=== PATIENT | male | born 1980 | race Caucasian/White ===

== ENCOUNTER 2017-01-28 12:00 | Outpatient (RCR) | payer OTHER, SELFPAY ==
--- NOTE | 2016-11-01 17:59 | HP.PTEVAL_ITS ---
Patient's Visit Information ELIE AGARWAL is a 35 year old M referred to Physical Therapy by Stanislav Stubbs with a diagnosis of R rot cuff strain. Date of Evaluation: 11/01/16 Physical Therapist: Giancarlo Hyatt PT, - Visit Plan Frequency: 2-3x /Week Duration: 4 Weeks Plan: R shoulder strengthening (rot cuff), scap stab ex's, UBE, and HEP. Us and CP for pain - Subjective Subjective: reports R shoulder has been sore for about three weeks now. Pain had an insidious onset with pain. Pt reports no PMHx of pain like this in the R shoulder. Pt is R hand dominant. Sleep diff secondary to pain on occasion. Pt reports his worst pain is on the anterior aspect of the R shoulder. Pt works for a local [employer] which can result in heavy lifting at times. Pt reports he has not had any Dx tests at this time. Shoulder feels better in the morning, and always worse as the day goes on. 7/10 at rest, 9/10 at worst - Pain R shoulder Pain Intensity (Out of 10): 7 Pain Intensity Range: 9 - Objective Neuro: B UE sensation WNL to light touch. B bicepital reflex= 1/3. Palpation: Pain along the LHB tendon. No obvious deformity in R shoulder. ROM: L shoudler flex= 170, abd= 170, ER= 70, IR WNL; R shoulder flex= 140, abd= 140, ER= 70, WNL. MMT: R shoulder ER= 4-/5, all other B UE 5/5 throughout. Special tests: Pos empty can test - Goals Goal 1:: Decrease R shoulder pain x 50% to aid with sleep Goal Time Frame: 2-4 Weeks Goal 2:: Increase R shoulder flex and abd ROM x 20 degrees to aid with overhead lifting Goal Time Frame: 2-4 Weeks Goal 3:: Increase R shoulder strength x one grade to aid with RTW without limitation Goal Time Frame: 2-4 Weeks Goal 4:: I with HEP Goal Time Frame: 2-4 Weeks - Rehabilitation Potential Physical Therapy Diagnosis: R shoulder pain, weakness, and decreased ROM secondary to R shoulder impingement syndrome Rehabilitation Potential: Good - Anticipated Interventions Patient/Client Instruction: Educate patient on: Condition, Plan of Care For the Purpose of:: To improve self management Therapeutic Exercise to Include: Strength training, Endurance training, Passive ROM, Active ROM, Scapular Strength/Stabilization For the Purpose of:: To decrease pain, To increase ROM, To improve muscle performance and motor function Cryotherapy (ice pack, ice massage): Yes Ultrasound (thermal/non thermal): Yes For the Purpose of:: To decrease pain Thank you for the opportunity to evaluate your patient. For Medicare and Medicare HMO plans, please review the plan of care and approve it. It will need to be FAXED BACK to us at [phone] for Medicare purposes. Please let me know if there are questions or concerns regarding this plan of care. Physician Signature: Date:
--- NOTE | 2017-01-28 12:21 | HP.PTREVAL_ITS ---
Stanislav Stubbs, It has been my pleasure to treat ELIE AGARWAL over the last 20 visits for R rot cuff strain. Please see the progress note below for an update on the physical therapy plan of care! Subjective: Pt reports he hasnt improved to any sig level at this time Objective/Function: R shoulder ROM: flex= 150, abd= 140, ER= 70, IR WNL. MMT: R shoulder 5/5 throughout with exception to ER 4/5. Pt is I with HEP Plan Plan: Hold chart open until after MRI and DrAntonietta visit Goals Goal 1:: Decrease R shoulder pain x 50% to aid with sleep Goal Time Frame: 2-4 Weeks Goal Progress: Goal Met Goal 2:: Increase R shoulder flex and abd ROM x 20 degrees to aid with overhead lifting Goal Time Frame: 2-4 Weeks Goal Progress: Progressing Goal 3:: Increase R shoulder strength x one grade to aid with RTW without limitation Goal Time Frame: 2-4 Weeks Goal Progress: Goal Met Goal 4:: I with HEP Goal Time Frame: 2-4 Weeks Goal Progress: Goal Met Anticipated Interventions Patient/Client Instruction: Educate patient on: Condition, Plan of Care For the Purpose of:: To improve self management Therapeutic Exercise to Include: Strength training, Endurance training, Passive ROM, Active ROM, Scapular Strength/Stabilization For the Purpose of:: To decrease pain, To increase ROM, To improve muscle performance and motor function Cryotherapy (ice pack, ice massage): Yes Ultrasound (thermal/non thermal): Yes For the Purpose of:: To decrease pain Please do not hesitate to contact me at [phone] by phone or Fax: if you have questions or concerns regarding this new plan of care! Sincerely, Giancarlo Hyatt, PT,
--- NOTE | 2017-04-21 17:14 | HP.PT.NRP ---
HP - Discharge Summary (1) - Patient Information ELIE AGARWAL was seen in my office for initial evaluation on 11/01/16. The following Plan of Care was established for this patient: Initial Frequency: 2-3x /Week Initial Duration: 4 Weeks - Anticipated Interventions Patient/Client Instruction: Educate patient on: Condition, Plan of Care For the Purpose of:: To improve self management Therapeutic Exercise to Include: Strength training, Endurance training, Passive ROM, Active ROM, Scapular Strength/Stabilization For the Purpose of:: To decrease pain, To increase ROM, To improve muscle performance and motor function Cryotherapy (ice pack, ice massage): Yes Ultrasound (thermal/non thermal): Yes For the Purpose of:: To decrease pain This patient was last seen in our office . Pertinent comments regarding their Physical therapy will appear below: Pt was last treated on the date of 01/28/17. We discussed holding further PT until after F/U with Dr Olivas. Pt has not returned through todays date, and is therefore discontinued at this time. At this point I will be discontinuing this patient from physical therapy. I would be happy to see this patient again in the future if found appropriate by the physician. Thank you! Giancarlo Hyatt, PT,
== END 2017-01-28 19:00 | disposition home or self-care (01) ==
LOC: PT 12:00
PROVIDERS: Family Provider Family Medicine; PCP Family Medicine; Visit Provider Family Medicine
DX: S46.011D Strain of muscle(s) and tendon(s) of the rotator cuff of right shoulder, subsequent encounter (principal); M75.21 Bicipital tendinitis, right shoulder; X58.XXXD Exposure to other specified factors, subsequent encounter
CPT/HCPCS: 97110; 97161; 97530

== ENCOUNTER → 2017-05-09 22:05 | Outpatient (CLI) | payer OTHER, SELFPAY | PROVIDERS: Family Provider Family Medicine; PCP Family Medicine; Visit Provider Family Medicine | DX: Z20.818 Contact with and (suspected) exposure to other bacterial communicable diseases (principal) | CPT/HCPCS: 87798 ==

== ENCOUNTER → 2017-12-28 12:07 | Outpatient (CLI) | payer OTHER, SELFPAY ==
--- NOTE | 2017-12-28 12:12 | RAD_ITS ---
STUDY: X-RAY - RIGHT WRIST REASON FOR EXAM: Male, 37 years old. Pain for one month. TECHNIQUE: A view(s) of the wrist were obtained. COMPARISON: None. FINDINGS: Normal visualized distal radius and ulna. Normal radiocarpal articulation. Normal distal radioulnar articulation. Normal carpal bones. Normal carpal articulations. Normal carpometacarpal articulation of the thumb. Normal second through fifth carpometacarpal articulations. Normal visualized metacarpal bones. The soft tissue structures are unremarkable. RAD/Wrist min 3 Views IMPRESSION: Normal x-ray examination of the wrist. Electronically Signed: Bk Ruiz DO at 18:27 EDT Tel [phone], Service support ,
== END ==
PROVIDERS: Family Provider Family Medicine; PCP Family Medicine; Referring Provider Family Medicine; Visit Provider Family Medicine
DX: M25.531 Pain in right wrist (principal)
CPT/HCPCS: 73110

== ENCOUNTER 2018-08-30 16:41 | Emergency (ER) | payer OTHER, SELFPAY ==
[2018-08-30 16:42] VITALS: BP 156/83; PULSE 98; RESP 16; TEMP 36.7; O2SAT 99; BMI 34.7
--- NOTE | 2018-08-30 17:22 | ED.DCSUM_ITS ---
- ER Visit Summary Date of Service: 08/30/18 Chief Complaint: Back pain History of Present Illness: The patient is a 37 M with back pain for the past month. The pain is in his right upper lumbar and lower thoracic area. He said it came on like a charley horse, but that it has not eased up over the past mo nth. He has tried ibuprofen and Tylenol with no improvement. He said the pain is starting to wrap around to his right flank. He denies any abdominal pain or GI symptoms. He denies any urinary symptoms. Denies trauma. Denies any chest pain, shortness of breath, cough, or sputum. Denies fevers. Denies leg swelling or calf pain. Denies any history of heart or lung disease. Denies any history of vascular disease or PE. Physical Examination: Afebrile and vital signs are unremarkable. Patient does have some right thoracic back tenderness just inferior to his ribs and also some tenderness in his right CVA. Right flank is mildly tender. Abdomen is soft and nontender. Heart regular. Lungs clear in all keith. Extremities nontender with no edema. Skin normal in color without jaundice or pallor. Test Results: Labs and urinalysis pending. Emergency Department Course and Treatment: I suspect this is myofascial pain. The pain seems to be wrapping around and progressing, so I will check a urinalysis and some blood work. I do not believe that he has lung disease, PE. Patient agreed. We will not pursue chest imaging. Will check labs and urinalysis before pursuing any further imaging. There is nothing to suggest a fracture or spinal injury. Work-up was unremarkable. I suspect this is myofascial pain. I had a discussion with the patient. Given that his exam, symptoms, labs, urinalysis are reassuring, I believe he can try medical management. I explained that I do not know what is causing his symptoms, and so it is important to follow-up with his doctor. He may need further testing as an outpatient if anything new develops. He should also return to the ED if he has any problems following up or any new or worsening issues. Continue anti-inflammatories. We will add Flexeril. Follow-up with primary care. Return for any new or worsening issues. Treatment Plan: As above Disposition: Discharge Impression: 1. Thoracic back pain This note was generated with [employer].ation software. It may contain incorrect words, spelling, and punctuation that were not noted in review of the chart prior to signing ED Disposition - Plan for ED Patient: Instructions: ED Spasm Back No Trauma Prescriptions: cycloBENZAPRine HCl [Flexeril] 10 mg PO TID PRN #20 tab PRN Reason: Muscle Spasm Referrals: Dilshad Stubbs MD [Primary Care Provider] -
[2018-08-30 17:58] LABS: Absolute Neutrophil Count 4.3 X10^3/uL (2.0-7.7); Basophil# 0.04 X10^3/uL; Basophil% 0.5 % (0-1); Eosinophil# 0.33 X10^3/uL; Eosinophils% 4.3 % (0-5); Hematocrit 41.4 % (40-54); Hemoglobin 14.3 g/dl (13.0-16.5); Lymphocyte % 29.9 % (19-41); Mean Corp Hgb Conc 34.5 g/gl (32-36); Mean Corpuscular Hgb 30.6 pg (27.0-32.0); Mean Corpuscular Volume 88.5 fL (80-94); Mean Platelet Vol. 9.6 fl (6.2-12.0); Monocyte# 0.73 X10^3/uL; Monocyte% 9.5 % (0-10); Neutrophil # 4.29 X10^3/uL (2.7-7.7); Neutrophil % 55.7 % (47-70); Platelet Count 242 K/mm3 (150-450); RBC Distribution Width CV 13.5 % (11.6-14.6); RBC Distribution Width SD 43.5 fl (35.1-43.9); Red Blood Count 4.68 M/mm3 (4.6-6.2); White Blood Count 7.7 K/mm3 (4.4-11.0)
[2018-08-30 17:59] LABS: POSITIVE COUNT NO; POSITIVE DIFFERENTIAL NO; POSITIVE MORPHOLOGY NO
[2018-08-30 18:03] LABS: ALB/GLOB Ratio 1.2 RATIO (0.9-2.4); AST(SGOT) 28 U/L (15-37); Alanine Aminotransfer ALT/SGPT 48 U/L (16-61); Albumin, Serum 4.3 g/dL (3.2-5.0); Alkaline Phosphatase 67 U/L (45-117); Anion Gap 7 (5-15); BUN 10 mg/dL (7-18); BUN/Creat Ratio 12.1 RATIO (10-20); Calcium,Total 9.2 mg/dL (8.5-10.1); Chloride 109 mmol/L (98-107); Creatinine, Serum 0.82 mg/dL (0.70-1.30); EST Glomerular Filtration Rate 110 mL/min (>60); Est Glom Filt Rate - Afr Amer 133 mL/min (>60); Estimated Creatinine Clearance 140.62 ml/min; Globulin 3.6 g/dL (2.2-4.2); Glucose 116 mg/dL (74-106); Lipase 110 U/L (73-393); Potassium 3.7 mmol/L (3.5-5.1); Protein, Total 7.9 g/dL (6.4-8.2); Sodium Level 140 mmol/L (136-145)
[2018-08-30] MEDS: Ibuprofen 600 MG Tablet PO (18:04)
[2018-08-30 18:17] LABS: Bacteria 0 SEEN /hpf (None Seen); Mucous, Urine 0 SEEN /hpf (<or=2+); Red Blood Cells-Urine 0 SEEN /hpf (0-5); Squamous Epithelial Cells - UA 0 SEEN /hpf (0-5); White Blood Cells 0 SEEN /hpf (0-5)
[2018-08-30 18:24] LABS: Color, Urine Yellow (Yellow); Glucose, Dipstick Normal (Normal); Ketone-Dipstick Negative (Negative); Leukocyte Esterase-Dipstick Negative /ul (Negative); Nitrite-Dipstick Negative (Negative); Occult Blood-Urine Negative /ul (Negative); Protein-Dipstick Negative (Negative); Urine Bilirubin Dipstick Negative (Negative); Urine Clarity Clear (Clear); Urine Urobilinogen Normal (Normal)
--- NOTE | 2018-08-30 19:10 | ED.DEP ---
ED Disposition - Plan for ED Patient: Instructions: ED Spasm Back No Trauma Prescriptions: cycloBENZAPRine HCl [Flexeril] 10 mg PO TID PRN #20 tab PRN Reason: Muscle Spasm Referrals: Dilshad Stubbs MD [Primary Care Provider] -
== END 2018-08-30 19:21 | disposition home or self-care (01) ==
PROVIDERS: Emergency Provider Emergency Medicine; Family Provider Family Medicine; PCP Family Medicine
DX: M54.6 Pain in thoracic spine (principal); K21.9 Gastro-esophageal reflux disease without esophagitis; F41.9 Anxiety disorder, unspecified; G47.33 Obstructive sleep apnea (adult) (pediatric); Z79.899 Other long term (current) drug therapy
CPT/HCPCS: 80053; 81001; 83690; 85025; 99283

== ENCOUNTER → 2019-02-01 16:56 | Outpatient (CLI) | payer OTHER, SELFPAY ==
[2019-02-01 18:02] LABS: Absolute Lymphocyte Count 3.31 X10^3/uL (0.83-4.51); Absolute Neutrophil Count 5.1 X10^3/uL (2.0-7.7); Basophil# 0.09 X10^3/uL; Basophil% 0.9 % (0-1); Eosinophils% 3.1 % (0-5); Hematocrit 44.7 % (40-54); Hemoglobin 15.1 g/dL (13.0-16.5); Lymphocyte # 3.31 X10^3/ul (4.0); Lymphocyte % 34.4 % (19-41); Mean Corp Hgb Conc 33.8 g/dL (32-36); Mean Corpuscular Hgb 30.4 pg (27.0-32.0); Mean Corpuscular Volume 90.1 fL (80-94); Monocyte# 0.82 X10^3/uL; Monocyte% 8.5 % (0-10); NRBC Flagged by Analyzer 0 % (0-5); Neutrophil # 5.07 X10^3/uL (2.7-7.7); Neutrophil % 52.7 % (47-70); Platelet Count 266 K/mm3 (150-450); RBC Distribution Width SD 42.3 fl (35.1-43.9); Red Blood Count 4.96 M/mm3 (4.6-6.2); White Blood Count 9.6 K/mm3 (4.4-11.0)
[2019-02-01 18:16] LABS: Erythrocyte Sedimentation Rate 14 mm/hr (0-15)
[2019-02-01 18:41] LABS: ALB/GLOB Ratio 1.1 RATIO (0.9-2.4); AST(SGOT) 23 U/L (15-37); Alanine Aminotransfer ALT/SGPT 45 U/L (16-61); Albumin, Serum 4.1 g/dL (3.2-5.0); Alkaline Phosphatase 71 U/L (45-117); Anion Gap 9 (5-15); BUN 12 mg/dL (7-18); BUN/Creat Ratio 14.3 RATIO (10-20); Calcium,Total 9.2 mg/dL (8.5-10.1); Chloride 106 mmol/L (98-107); Creatinine, Serum 0.84 mg/dL (0.70-1.30); EST Glomerular Filtration Rate 108 mL/min (>60); Est Glom Filt Rate - Afr Amer 131 mL/min (>60); Globulin 3.9 g/dL (2.2-4.2); Glucose 89 mg/dL (74-106); Potassium 3.6 mmol/L (3.5-5.1); Sodium Level 139 mmol/L (136-145); Thyroid Stim Hormone (TSH) 1.44 uIU/mL (0.358-3.74)
[2019-02-01 18:51] LABS: Vitamin D,25 Hydroxy 20.8 ng/mL (29.95-100.01)
== END ==
PROVIDERS: Family Provider Family Medicine; PCP Family Medicine; Referring Provider Family Medicine; Visit Provider Family Medicine
DX: R53.83 Other fatigue (principal)
CPT/HCPCS: 36415; 80053; 82306; 84403; 84443; 85025; 85652

== ENCOUNTER 2020-06-06 03:34 | Day surgery (SDC) | payer OTHER, SELFPAY ==
[2020-06-06] VITALS (15 sets, daily range): BP systolic 118–162; BP diastolic 74–100; PULSE 75–88; RESP 16–20; TEMP 36–36.6; O2SAT 95–100; BMI 34.7
--- NOTE | 2020-06-06 04:06 | CT_ITS ---
STUDY: CT ABDOMEN AND PELVIS WITHOUT CONTRAST REASON FOR EXAM: Male, 39 years old patient with left-sided flank pain radiating to left lower quadrant. RADIATION DOSAGE (If Supplied By Facility): CTDIvol = ( 20.22 ) mGy, DLP = ( 1187.28 ) mGycm TECHNIQUE: Transaxial images were obtained from the dome of the diaphragm to the symphysis pubis without oral contrast, and without intravenous contrast. Sagittal and coronal images were reconstructed. Individualized dose optimization techniques were used for this CT. COMPARISON: None. FINDINGS: There are bilateral curvilinear opacities at the lung bases probably secondary to subsegmental atelectasis. The visualized portions of the heart are within normal limits. Normal liver. Normal gallbladder and extrahepatic biliary system. Normal spleen. Normal pancreas. Normal bilateral adrenal glands. Normal right kidney. There is mild left-sided hydronephrosis and hydroureter secondary to proximal ureteral calculus measuring 11.8 x 7.2 mm in size. Normal visualized stomach. There is no obvious dilated bowel, ascites or pneumoperitoneum. Small bowel has a grossly normal appearance. Stool is visible throughout most of the colon with scattered diverticula. The appendix is visualized and appears normal. Normal abdominal aorta. Normal inferior vena cava. Normal retroperitoneum. Normal urinary bladder. Normal visualized prostate gland. Normal abdominal wall. There are diffuse degenerative changes of the visualized spine. There is degenerative arthropathy of the sacroiliac joints. CT/Abdomen/Pelvis without Cont IMPRESSION: Mild LEFT-sided hydronephrosis secondary to proximal ureteral calculus. Electronically Signed: Janiya Das MD at 5:03 EST , Service support ,
[2020-06-06] MEDS: Ondansetron 4 MG/2 ML Vial IV (04:13)
[2020-06-06] MEDS: Morphine 4 MG/ML Syringe IV (04:13)
--- NOTE | 2020-06-06 04:23 | ED.VISSUMM ---
- ER Visit Summary Date of Service: 06/06/20 Chief Complaint: Left flank pain History of Present Illness: The patient is a 39 M presenting with left flank pain. Patient states this started around 1 AM. He has pain in his left flank that radiates to his left lower quadrant. He has nausea with no vomiting. He denies urinary complaints. He has no history of kidney stones but does have a family history of kidney stones. Denies fever. Denies other complaints. Physical Examination: Vitals are stable. Patient is afebrile. Alert no acute distress. HEENT exam is unremarkable. Neck is supple. Lungs are clear and equal bilaterally. Heart is regular rate and rhythm. Abdomen is soft nontender nondistended. No guarding or rebound. Back: left CVA tenderness Extremities are unremarkable. Skin is warm and dry. Remainder of exam is unremarkable. Emergency Department Course and Treatment: Patient was given morphine, Zofran IV. CBC, chemistries unremarkable. CT flank shows mild LEFT-sided hydronephrosis secondary to proximal ureteral calculus measuring 11.8 x 7.2 mm in size. Urinalysis shows 10-25 red blood cells, 0 white blood cells. Discussed with Dr. Villarreal. Patient will be observed for shockwave treatment today. Disposition: Observation Impression: Urolithiasis This note was generated with [email or web address] dictation software. It may contain incorrect words, spelling, and punctuation that were not noted in review of the chart prior to signing ED Disposition - Plan for ED Patient: Referrals: Dilshad Stubbs MD [Primary Care Provider] -
[2020-06-06 04:28] LABS: Absolute Lymphocyte Count 3.56 X10^3/uL (0.83-4.51); Absolute Neutrophil Count 4.9 X10^3/uL (2.0-7.7); Basophil# 0.07 X10^3/uL; Basophil% 0.7 % (0-1); Hematocrit 43.8 % (40-54); Lymphocyte # 3.56 X10^3/ul (4.0); Lymphocyte % 35.8 % (19-41); Mean Corp Hgb Conc 34.2 g/dL (32-36); Mean Corpuscular Volume 90.5 fL (80-94); Mean Platelet Vol. 10.2 fl (6.2-12.0); Monocyte# 0.95 X10^3/uL; Monocyte% 9.6 % (0-10); NRBC Flagged by Analyzer 0 % (0-5); Neutrophil # 4.93 X10^3/uL (2.7-7.7); Neutrophil % 49.6 % (47-70); Platelet Count 280 K/mm3 (150-450); RBC Distribution Width CV 12.9 % (11.6-14.6); RBC Distribution Width SD 42.3 fl (35.1-43.9); Red Blood Count 4.84 M/mm3 (4.6-6.2); White Blood Count 9.9 K/mm3 (4.4-11.0)
[2020-06-06 04:42] LABS: Anion Gap 6 (5-15); BUN 11 mg/dL (7-18); Chloride 109 mmol/L (98-107); Creatinine, Serum 0.92 mg/dL (0.70-1.30); EST Glomerular Filtration Rate 97 mL/min (>60); Est Glom Filt Rate - Afr Amer 117 mL/min (>60); Estimated Creatinine Clearance 122.85 ml/min; Glucose 90 mg/dL (74-106); Potassium 3.8 mmol/L (3.5-5.1); Sodium Level 140 mmol/L (136-145)
[2020-06-06] MEDS: 0.9% Normal Saline 1,000 ML 999 ML IV (05:09)
[2020-06-06 05:54] LABS: Squamous Epithelial Cells - UA 0 SEEN /hpf (0-5); White Blood Cells 0 SEEN /hpf (0-5)
[2020-06-06 05:57] LABS: Color, Urine Yellow (Yellow); Glucose, Dipstick Normal (Normal); Ketone-Dipstick 5 mg/dl (Negative); Leukocyte Esterase-Dipstick 25 /ul (Negative); Nitrite-Dipstick Negative (Negative); Occult Blood-Urine 150 /ul (Negative); Protein-Dipstick 30 mg/dl (Negative); Urine Bilirubin Dipstick Negative (Negative); Urine Clarity Clear (Clear); Urine Urobilinogen Normal (Normal)
[2020-06-06 06:07] LABS: Red Blood Cells-Urine 10-25 SEEN /hpf (0-5)
[2020-06-06 06:08] LABS: Bacteria RARE /hpf (None Seen); Mucous, Urine 1+ /hpf (<or=2+)
[2020-06-06] MEDS: Lactated Ringers 1,000 ML 75 ML IV (06:30)
--- NOTE | 2020-06-06 06:38 | HP.PCM_ITS ---
Problem List (1) Ureteral calculus, left Status: Acute History of Present Illness Date of Admission: 06/06/20 Chief Complaint: left kidney stone The patient is a 39 year old Male with a large obstructing stone, admit for surgery today for shock wave treatment] Past Medical History Medical History: Medical History (Last Updated 03/30/17 @ 08:15 by Crystal Swanson) Anxiety F41.9 Heartburn R12 Sleep apnea G47.30 Allergies No Known Allergies Allergy (Verified 03/30/17 08:13) Home Medications: Ambulatory Orders Medication Instructions Recorded multivitamin 1 tab PO QDAY 03/30/17 Fiber 06/06/20 Surgical History: Surgical History (Last Updated 03/30/17 @ 08:15 by Crystal Swanson) [place] teeth extracted K08.499 Surgical History: no surgical history Smoking Status: Never smoker Review of Systems Constitutional: Denies: Chills, Fever, Weight Change HEENT: Denies: Head Aches, Sinus Congestion, Sinus Drainage Cardiovascular: Denies: Chest Pain, Palpitations Respiratory: Denies: Cough, Shortness of breath at rest, Sputum production Gastrointestinal: Denies: Abdominal Pain, Nausea, Vomiting Genitourinary: Denies: Dysuria Musculoskeletal: Denies: Joint Pain, Joint Tenderness Skin: Denies: Rash, Wounds Neurological: Denies: Numbness, Tingling, Focal weakness Psychiatric: Denies: Anxiety, Depression, Homicidal Ideations, Suicidal Ideations Hematologic/ Lymphatic: Denies: Easy Bruising, Easy Bleeding VTE Information - Inpt Only VTE Present on Admission: No Patient Problems: Active and Suspected Problems (Last Updated 03/30/17 @ 08:15 by Crystal Swanson) Ureteral calculus, left (Acute) - Physical Exam Vitals/I&O's: Vital Signs Temp Pulse Resp BP Pulse Ox 97.0 F L 87 16 127/84 H 96 06/06/20 06:36 06/06/20 06:36 06/06/20 06:36 06/06/20 06:36 06/06/20 06:36 Oxygen Delivery Method Room Air Weight: 122.47 kg Body Mass Index (BMI) 34.7 Intake and Output for Last 24 Hours 06/04/20 06/05/20 06/06/20 23:59 23:59 23:59 Intake Total 1000 / 1000 Balance 1000 / 1000 General: Alert, Oriented x3, Cooperative HEENT: Atraumatic, PERRLA, EOMI, Normocephalic Neck: Supple, No JVD, Negative Carotid Bruits Lungs: Clear to auscultation, Normal air movement Cardiovascular: Regular rate, No murmurs Abdomen: Bowel Sounds Present, Soft, Non Tender Extremities: No edema, Capillary Refill Less than 3 Seconds Skin: No rashes, No breakdown Musculoskeletal: No Tenderness to Palpation of Joints or Extremities Neurological: Cranial nerves II-XII grossly intact Psych/Mental Status: Normal Affect, Appropriate Laboratory Results 06/06/20 03:42: WBC 9.9, RBC 4.84, Hgb 15.0, Hct 43.8, MCV 90.5, MCH 31.0, MCHC 34.2, RDW Std Deviation 42.3, RDW Coeff of Adonis 12.9, Plt Count 280, MPV 10.2, Immature Gran % (Auto) 0.300, Neut % (Auto) 49.6, Lymph % (Auto) 35.8, [place] % (Auto) 9.6, Eos % (Auto) 4.0, Baso % (Auto) 0.7, Absolute Neuts (auto) 4.9, Absolute Lymphs (auto) 3.56, Nucleated RBC % 0 06/06/20 03:42: Sodium 140, Potassium 3.8, Chloride 109 H, Carbon Dioxide 25.0, Anion Gap 6, BUN 11, Creatinine 0.92, Estim Creat Clear Calc 122.85, Est GFR (MDRD) Af Amer 117, Est GFR (MDRD) Non-Af 97, BUN/Creatinine Ratio 12.0, Glucose 90, Calcium 9.0 06/06/20 05:50: Urine Color Yellow, Urine Clarity Clear, Urine pH 5.0, Ur Specific [place] 1.020, Urine Protein 30 H, Urine Glucose (UA) Normal, Urine Ketones 5 H, Urine Occult Blood 150 H, Urine Nitrite Negative, Urine Bilirubin Negative, Urine Urobilinogen Normal, Ur Leukocyte Esterase 25 H, Urine RBC 10-25 SEEN, Urine WBC 0 SEEN, Ur Squamous Epith Cells 0 SEEN, Urine Bacteria RARE, Urine Mucus 1+ Current Medications Acetaminophen (Acetaminophen 325 Mg Tablet) 325 - 650 mg PO Q4H PRN PRN PRN Reason: pain score 1-10/fever/headache Lactated Ringer's () 1,000 mls @ 75 mls/hr IV .[id number] MANDY Cefazolin Sodium () 1 gm in 50 mls @ 150 mls/hr IV Q8 MANDY Stop: 06/06/20 22:19 Ketorolac Tromethamine (Ketorolac 15 Mg/Ml Vial) 15 mg IV Q6H PRN PRN PRN Reason: PAIN Stop: 06/08/20 06:33 Morphine Sulfate (Morphine 2 Mg/Ml Syringe) 2 mg IV Q2H PRN PRN Reason: Pain Score 6-10 Ondansetron HCl (Ondansetron 4 Mg/2 Ml Vial) 4 mg IV Q8H PRN PRN Reason: Nausea Assessment/Plan All Active Problems (Last Updated 03/30/17 @ 08:15 by Crystal Swanson) Ureteral calculus, left (Acute) plan for left eswl today, will discharge pt after treatment npo consent
--- NOTE | 2020-06-06 09:23 | PCM.DC.URO ---
Discharge Diet: Light diet - advance as tolerated Discharge Activity: Return to Normal Activity, May not drive while taking narcotic pain medications. Instructions: Shock Wave Lithotripsy Allergies/Adverse Reactions: Allergies No Known Allergies Allergy (Verified 06/06/20 07:37) Medications to take at Discharge multivitamin 1 tab PO QDAY 03/30/17 Ciprofloxacin [Cipro] 500 mg PO BID #10 tab 06/06/20 Fiber 06/06/20 Hydrocodone Bitart/Apap 5-325 [[place] 5MG-325MG] 1 tab PO Q4H PRN PRN 7 Days #14 tab 06/06/20 The following prescriptions were given: Ciprofloxacin [Cipro] 500 mg PO BID #10 tab Prescription Printed Hydrocodone Bitart/Apap 5-325 [[place] 5MG-325MG] 1 tab PO Q4H PRN PRN 7 Days #14 tab PRN Reason: Pain Prescription Printed Primary Care Physician: Dilshad Stubbs MD [Primary Care Provider] - Test Results: Test results from this visit will be discussed in further detail at your follow-up appointment, if applicable. Please Follow Up With: River Villarreal MD - [phone] When: in 2 weeks, please call to make an appointment.
[2020-06-06] MEDS: Cefazolin 1 GM/50 ML BAG IV (09:40)
--- NOTE | 2020-06-06 10:31 | OP.PCM_ITS ---
Problem List (1) Ureteral calculus, left Status: Acute Report of Operation Date of Procedure: 06/06/20 Pre-Operative Diagnosis: Left obstructing ureteral calculi Post-Operative Diagnosis: Same Surgery/Procedure Performed:: Cystoscopy left stent placement left extracorporeal shockwave lithotripsy Description of Surgical Findings:: Patient presents to the hospital for treatment of a kidney stone with shockwave lithotripsy. In the preoperative area and x-ray was done to confirm the location of the stone. The x-ray was reviewed and the stone location was reviewed. In the preoperative setting I spoke with the patient regarding the treatment of the stone how the treatment would be conducted and the expectations after surgery. The patient understands there is a risk of bleeding and infection. Also discussed the very rare risk of hematoma or damage to the kidney. We also discussed the risk that the shockwave machine will fail to break the stone adequately and that the patient may need other surgical procedures. We also discussed the possibility that the patient may need a stent after the procedure. After reviewing the procedure with the patient, the patient is signed the consent form all the patient's questions were addressed and was taken back to the operating room for treatment of a kidney stone. Patient was taken back to the operating room, patient was identified by the nursing staff, we identified the side of the treatment and the patient side of treatment had been marked by my initials. The patient underwent general anesthetic and was placed supine on the lithotripter table. We then used fluoroscopy to identify the stone on the left proximal ureter 11mm stone. The urethra and genitals were prepped and draped in usual sterile fashion. Using a 21 [place] rigid cystourethroscope the entire length of the urethra was normal then went into the bladder. Identified the trigone the left and right ureteral orifice. I then cannulated the left orifice and advanced a wire up into the kidney. I then backloaded a 5 [place] open ended catheter over the wire and injected contrast to delineate the anatomy. After the retrograde was performed I then used fluoroscopic images and guidance to advanced a wire up into the kidney and over the 0.038 glidewire I advanced a 6 [place] by 26 cm double pigtail stent. I then pulled the 0.038 Glidewire off and the stent coiled in the kidney bladder good position. The bladder was then drained. We confirmed the position of the stent by fluoroscopy We then positioned the patient under the lithotripter and we used triangulation technique to identify the location of the stone and then we made sure that the stone was engaged in the F2 focal point of F2 Donier lithoprior machine. Once the patient was positioned appropriately and the stone was identified and placed in the F2 focal point of the lithotripter machine we then proceeded with shockwave lithotripsy. In the beginning the shockwave was delivered at a rate of 90 shocks per minute, we monitor the EKG for any ectopy. The power was slowly increased to 5 kV and subsequently at the 7 kV. We then proceeded with the treatment we move the therapy had around during the treatment to make sure the stone stayed in the F2 focal point during the entire treatment. Once the stone had broken up completely then we stopped the treatment a total of about 3000 shockwaves were delivered to the stone under fluoroscopic guidance. At this point the patient's anesthetic was reversed patient was extubated and taken back to the PACU in stable condition. The patient was given instructions to call the office to make an a follow-up appointment. Type of Anesthesia:: General Drains: stent left side - Admit VTE Documentation VTE Present on Admission: No VTE Mechan Device Prophylaxis: SCD's
[2020-06-06] MEDS: Ketorolac 15 MG/ML Vial IV (11:08)
--- NOTE | 2020-06-06 14:46 | SUR.PHASEII ---
1440 PT HAD EMESIS X2. DR. WALTERS AWARE. NEW ORDERS RECEIVED.
== END 2020-06-06 15:12 | disposition home or self-care (01) ==
LOC: ED 06:56 → PCUOUT 06:56 → PCU 08:38
PROVIDERS: Emergency Provider Emergency Medicine; PCP Family Medicine; Visit Provider Urology
PROC: (CPT 50590; principal; 2020-06-06 09:25)
DX: N13.2 Hydronephrosis with renal and ureteral calculous obstruction (principal); G47.30 Sleep apnea, unspecified
CPT/HCPCS: 50590; 52332; 74176; 80048; 81001; 85025; 87426; 99284; J7030; J7120; A4216; C1769; C2617; J2405

== ENCOUNTER 2020-06-12 12:52 | Emergency (ER) | payer OTHER, SELFPAY ==
[2020-06-06 07:40] VITALS: BMI 34.7
[2020-06-12 12:53] VITALS: BP 158/111; PULSE 79; RESP 18; TEMP 36.7; O2SAT 97; BMI 34.7
--- NOTE | 2020-06-12 13:49 | ED.VISSUMM ---
- ER Visit Summary Date of Service: 06/12/20 Chief Complaint: Left flank pain History of Present Illness: The patient is a 39 M who presents with left flank pain that occurred today. Patient had a stent removed from his left ureter today by Dr. Villarreal. Patient went home. Patient started to have some pain. Patient took 1 [place] tablet. Patient had no improvement with this. Patient states he attempted to contact Dr. Villarreal's office but was unsuccessful. Patient denies any dysuria or hematuria. Patient denies any fevers or chills. Patient admits to nausea but denies any vomiting. Denies any chest pain or shortness of breath. Physical Examination: Vital signs are stable. Patient is afebrile. Patient is in no acute distress. Oral mucosa is pink and moist. Neck is supple. Trachea is midline. There is no JVD. Heart was regular rate and rhythm. Lungs are clear and equal bilaterally. Abdomen is soft. Bowel sounds are normal. There is left CVA tenderness. There is mild left upper and left lower quadrant tenderness. There is no rebound or guarding noted. Cranial nerves II through XII are intact. There are no focal motor or sensory deficits noted. Extremities are intact. There is no calf tenderness or edema. Test Results: CBC and basic metabolic profile were obtained and were within normal limits. Urinalysis was within normal limits. Emergency Department Course and Treatment: Patient was given a dose of morphine here. Patient is feeling better on reevaluation. Patient was given a prescription for a short course of Percocet. Patient was instructed to follow-up with Dr. Villarreal as scheduled. Patient understood and was agreeable with the plan. All questions were answered. Disposition: Discharge home Impression: 1. Left flank pain 2. History of nephrolithiasis This note was generated with [employer] dictation software. It may contain incorrect words, spelling, and punctuation that were not noted in review of the chart prior to signing ED Disposition - Plan for ED Patient: Disposition: Home or Assisted Living Diagnosis: Left flank pain Instructions: ED Flank Pain, Uncertain Cause Prescriptions: Oxycodone HCl/Acetaminophen [Percocet 5/325] 1 tablet PO Q6H PRN PRN 3 Days #12 tablet PRN Reason: Pain Prescription Printed Referrals: River Villarreal MD [STAFF PHYSICIAN] - Keep Rod appointment Dilshad Stubbs MD [Primary Care Provider] - 5-7 Days
[2020-06-12 13:56] LABS: Absolute Lymphocyte Count 2.06 X10^3/uL (0.83-4.51); Basophil# 0.08 X10^3/uL; Basophil% 0.9 % (0-1); Eosinophil# 0.41 X10^3/uL; Eosinophils% 4.4 % (0-5); Hematocrit 45.3 % (40-54); Hemoglobin 15.3 g/dL (13.0-16.5); Lymphocyte # 2.06 X10^3/ul (4.0); Lymphocyte % 21.9 % (19-41); Mean Corp Hgb Conc 33.8 g/dL (32-36); Mean Corpuscular Hgb 30.1 pg (27.0-32.0); Mean Corpuscular Volume 89.2 fL (80-94); Mean Platelet Vol. 9.6 fl (6.2-12.0); Monocyte# 0.79 X10^3/uL; Monocyte% 8.4 % (0-10); NRBC Flagged by Analyzer 0 % (0-5); Neutrophil # 6.02 X10^3/uL (2.7-7.7); Neutrophil % 64.1 % (47-70); Platelet Count 279 K/mm3 (150-450); RBC Distribution Width CV 12.8 % (11.6-14.6); RBC Distribution Width SD 41.7 fl (35.1-43.9); Red Blood Count 5.08 M/mm3 (4.6-6.2); White Blood Count 9.4 K/mm3 (4.4-11.0)
[2020-06-12] MEDS: 0.9% Normal Saline 1,000 ML 1000 ML IV (13:59)
[2020-06-12] MEDS: Morphine 4 MG/ML Syringe IV (13:59)
[2020-06-12] MEDS: Ondansetron 4 MG/2 ML Vial IV (13:59)
[2020-06-12 14:01] LABS: Mucous, Urine 0 SEEN /hpf (<or=2+); White Blood Cells 0 SEEN /hpf (0-5)
[2020-06-12 14:03] LABS: Color, Urine Yellow (Yellow); Glucose, Dipstick Normal (Normal); Ketone-Dipstick Negative (Negative); Leukocyte Esterase-Dipstick Negative /ul (Negative); Nitrite-Dipstick Negative (Negative); Occult Blood-Urine 150 /ul (Negative); Protein-Dipstick 30 mg/dl (Negative); Urine Bilirubin Dipstick Negative (Negative); Urine Clarity Sl. Cloudy (Clear); Urine Urobilinogen Normal (Normal); Urine pH 6.5 (5.0 - 8.0)
[2020-06-12 14:11] LABS: Bacteria 1+ /hpf (None Seen); Red Blood Cells-Urine 5-10 SEEN /hpf (0-5); Squamous Epithelial Cells - UA 0-5 SEEN /hpf (0-5)
[2020-06-12 14:12] LABS: ALB/GLOB Ratio 1.1 RATIO (0.9-2.4); AST(SGOT) 27 U/L (15-37); Alanine Aminotransfer ALT/SGPT 57 U/L (16-61); Albumin, Serum 4.2 g/dL (3.2-5.0); Alkaline Phosphatase 65 U/L (45-117); Anion Gap 5 (5-15); BUN 13 mg/dL (7-18); BUN/Creat Ratio 14.5 RATIO (10-20); Calcium,Total 9.4 mg/dL (8.5-10.1); Chloride 105 mmol/L (98-107); EST Glomerular Filtration Rate 99 mL/min (>60); Est Glom Filt Rate - Afr Amer 119 mL/min (>60); Estimated Creatinine Clearance 125.58 ml/min; Globulin 3.8 g/dL (2.2-4.2); Glucose 90 mg/dL (74-106); Sodium Level 139 mmol/L (136-145)
[2020-06-12 15:16] VITALS: BP 123/74; PULSE 81; RESP 16; O2SAT 97
--- NOTE | 2020-06-12 15:17 | ED.RN ---
THIS NURSE REVIEWED D/C INSTRUCTIONS WITH PT. PT VERBALIZED UNDERSTANDING OF INSTRUCTIONS. IV D/C. IV CATHETER INTACT. PT DENIES FURTHER NEEDS OR QUESTIONS AT THIS TIME. PT AMBULATES FROM ROOM ON OWN WITHOUT ASSISTANCE FROM STAFF
== END 2020-06-12 15:18 | disposition home or self-care (01) ==
PROVIDERS: Emergency Provider Emergency Medicine; PCP Family Medicine
DX: R10.9 Unspecified abdominal pain (principal); R11.0 Nausea; Z87.442 Personal history of urinary calculi
CPT/HCPCS: 80053; 81001; 85025; 96361; 96374; 96375; 99284; J7030; A4216; J2405

== ENCOUNTER → 2021-01-06 | Outpatient (CLI) | payer OTHER, SELFPAY | END | disposition home or self-care (01) | PROVIDERS: PCP Family Medicine; Referring Provider Family Medicine; Visit Provider Family Medicine | DX: Z20.822 Contact with and (suspected) exposure to COVID-19 (principal) | CPT/HCPCS: 87635; U0005; U0003 ==

== ENCOUNTER 2021-01-08 11:29 | Emergency (ER) | payer OTHER, SELFPAY ==
[2021-01-08 11:30] VITALS: BP 125/81; PULSE 87; RESP 16; TEMP 37.6; O2SAT 95; BMI 33.5
--- NOTE | 2021-01-08 11:41 | RAD_ITS ---
STUDY: X-RAY CHEST REASON FOR EXAM: Male, 40 years old. 7 day history of cough. Decreased pulse oximetry. TECHNIQUE: PA and lateral views of the chest. COMPARISON: Comparison is made with prior study 12/06/2016. FINDINGS: There now is evidence of a right infrahilar infiltrate as well as left basilar infiltrate. There is no demonstrated pleural abnormality. Normal size heart. Normal mediastinum and flavia. Normal visualized pulmonary arteries. Normal visualized aortic arch and descending thoracic aorta. There are diffuse degenerative changes of the visualized thoracic spine. Normal visualized ribs, clavicles, and shoulders. There is no demonstrated abnormality of the visualized soft tissue structures of the upper abdomen. RAD/Chest PA and Lateral IMPRESSION: Right infrahilar and left basilar infiltrates. Electronically Signed: John Frederick MD at 12:18 EDT , Service support ,
--- NOTE | 2021-01-08 11:42 | EX.ED.DYSGE1 ---
HPI History of Present Illness Chief Complaint: Shortness of Breath Narrative Narrative: Cough for about 4 5 days has Covid, patient is nonvaccinated, no other real symptom past history body aches bowel bladder habits normal p.o. 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 Riley Calloway MD) Anxiety Heartburn Sleep apnea Home Medications Fiber 06/06/20 [History Last Taken Unknown] albuterol sulfate [Proventil HFA] 2 puff INHALATION Q6H PRN #8.5 g 01/08/21 [Rx Last Taken Unknown] dexamethasone [Decadron] 6 mg PO DAILY #10 tab 01/08/21 [Rx Last Taken Unknown] Allergy/AdvReac Type Severity Reaction Status Date / Time amoxicillin AdvReac Upset Verified 01/08/21 11:34 Stomach Family History (Updated 03/30/17 @ 08:16 by Crystal Swanson) Father Diabetes Parkinsons Mother Hypertension Surgical History (Updated 03/30/17 @ 08:15 by Crystal Swanson) [place] teeth extracted Social History (Updated 03/31/17 @ 11:27 by Simone Olivas DO) Smoking Status: Never smoker ROS ROS ED Constitutional Constitutional ED: Reports subjective, sweats and other; Denies chills, fever(s) or weight loss Eyes Eyes: Denies blurry vision or change in vision ENT ENT ED: Denies ear pain Cardiovascular Cardiovascular: Denies chest pain or palpitations Respiratory/Chest Respiratory/Chest: Reports cough and dyspnea Gastrointestinal Gastrointestinal: Denies abdominal pain, nausea or vomiting Genitourinary Genitourinary ED: Denies dysuria or hematuria Musculoskeletal Musculoskeletal: Reports myalgias; Denies arthralgias Integumentary Reports rash; Denies abscess Neurologic Neurologic: Denies weakness Psychiatric Psychiatric: Denies anxiety or depression Endocrine Endocrinology: Denies polydipsia or polyuria Allergic/Immunologic Allergic/Immunologic ED: Denies urticaria EXAM Physical Exam Const Vital Signs: 01/08/21 11:30 01/08/21 11:53 01/08/21 12:52 Temperature 99.7 F H 99.7 F H Temperature Source Temporal Temporal Pulse Rate 87 93 Respiratory Rate 16 22 H 20 H Respiratory Effort Short of Breath Respiratory Depth Normal Respiratory Pattern Normal Blood Pressure 125/81 H 115/75 105/71 Blood Pressure Mean 95 88 82 Pulse Ox 95 93 95 Oxygen Delivery Method Room Air Room Air Room Air Positive well developed General Appearance ED: well developed HEENT Reports normocephalic Negative for trauma Eyes EOMs intact bilaterally Neck supple Chest Wall inspection of chest normal Resp normal respiratory effort Cardio regular rate GI non-tender and non-distended Back/Spine Back/Spine Narrative: unremarkable Extremity normal to inspection Neuro oriented x3 and CN's II-XII intact bilaterally Sensorium / Orientation: alert Psych mental status grossly normal Skin no rashes or lesions noted MDM MDM MDM Narrative Medical decision making narrative: Patient's clinical exam is unremarkable pulse ox is 95% he is in no distress dry cough eating and drinking well given all the above chest x-ray Chest x-ray to my review and radiology shows findings consistent with Covid pneumonitis he has been treated with the aerosols his pulse ox remains 95% discussed management with him he is comfortable with discharge home agrees to outpatient monoclonal antibody, Decadron therapy therapy Proventil inhaler self-isolation Covid discharge instructions and follow with outpatient providers return for change in symptoms Final impression COVID-19 pneumonitis infection Radiography Diagnostic Testing: Clinical Impression(s) from Imaging Studies Chest X-Ray 01/08/21 11:41 IMPRESSION: Right infrahilar and left basilar infiltrates. Electronically Signed: John Frederick MD at 12:18 EDT , Service support , Discharge Plan Triage Chief Complaint: Shortness of Breath ED Provider: Riley Calloway Dx/Rx/DC Orders Clinical Impression: COVID-19 Instructions: Coronavirus Disease 2019 (COVID-19): Caring for Yourself or Others, Using an Inhaler Prescriptions: New dexamethasone [Decadron] 6 mg tablet 6 mg PO DAILY Qty: 10 RF: 0 albuterol sulfate [Proventil HFA] 90 mcg/actuation HFA aerosol inhaler 2 puff inhalation Q6H PRN (Reason: shortness of breath or wheezing) Qty: 8.5 RF: 0 No Action Fiber RF: 0 Other Ambulatory Orders: COVID Outpatient Monoclonal Antibody Referral (Routine) Timeframe: 1 Day Facility: [facility] - Location: [facility] Ordered By: Dr. Lin Jwayyed Primary Care Provider: Dilshad Stubbs Referrals: Dilshad Stubbs MD [Primary Care Provider] -
[2021-01-08 11:44] VITALS: O2SAT 92
[2021-01-08 11:53] VITALS: BP 115/75; PULSE 93; RESP 22; TEMP 37.6; O2SAT 93
[2021-01-08 12:52] VITALS: BP 105/71; RESP 20; O2SAT 95
[2021-01-08] MEDS: dexAMETHasone 4 MG Tablet 6 MG PO (13:33)
[2021-01-08 13:36] VITALS: BP 101/59; PULSE 80; RESP 22; TEMP 37.3
== END 2021-01-08 13:45 | disposition home or self-care (01) ==
LOC: ED 12:04
PROVIDERS: Emergency Provider Emergency Medicine; PCP Family Medicine
DX: U07.1 COVID-19 (principal); F41.9 Anxiety disorder, unspecified; G47.30 Sleep apnea, unspecified; Z79.899 Other long term (current) drug therapy
CPT/HCPCS: 71046; 87426; 99283

== ENCOUNTER → 2021-01-08 | Outpatient (CLI) | payer OTHER, SELFPAY | END | disposition home or self-care (01) | LOC: BIMLAB 09:42 → LABSPEC 09:42 | PROVIDERS: PCP Family Medicine; Referring Provider Physician Assistant; Visit Provider Physician Assistant | DX: U07.1 COVID-19 (principal) | CPT/HCPCS: 87635; U0005; U0003 ==

== ENCOUNTER 2021-01-09 15:05 | Outpatient (CLI) | payer OTHER, SELFPAY ==
[2021-01-09] MEDS: 0.9% Saline Lock 10 ML Syringe IV (15:26)
[2021-01-09 15:27] VITALS: BP 132/76; PULSE 97; RESP 16; TEMP 37; O2SAT 97; BMI 33.5
[2021-01-09 16:14] VITALS: BP 123/69; PULSE 87; RESP 16; TEMP 36.8; O2SAT 97
[2021-01-09 17:00] VITALS: BP 120/70; PULSE 91; RESP 16; TEMP 36.6; O2SAT 98
== END 2021-01-09 17:00 | disposition home or self-care (01) ==
LOC: MS3OUT 15:06 → MS3 15:07
PROVIDERS: PCP Family Medicine; Referring Provider Nurse Practitioner Adult Health; Visit Provider Nurse Practitioner Adult Health
DX: Z23 Encounter for immunization (principal); U07.1 COVID-19
CPT/HCPCS: J7050; M0243; A4216; Q0244

== ENCOUNTER → 2021-09-03 | Outpatient (CLI) | payer BC, OTHER, SELFPAY ==
--- NOTE | 2021-09-03 08:48 | RAD_ITS ---
STUDY: X-RAY - ABDOMEN/PELVIS REASON FOR EXAM: Male, 40 years old. CALCULUS OF KIDNEY TECHNIQUE: Single AP view of the abdomen / pelvis. COMPARISON: None. FINDINGS: Normal visualized lung bases. There is a moderate amount of colonic fecal material. The visualized liver, spleen and kidneys are grossly normal in size and morphology. There are calcified phleboliths in the pelvis. Normal visualized osseous structures. RAD/Abdomen Single View IMPRESSION: Calcified phleboliths are seen in the pelvis. Electronically Signed: John Frederick MD at 13:10 EDT ,
== END | disposition home or self-care (01) ==
LOC: RAD 07:59
PROVIDERS: PCP Family Medicine; Referring Provider Urology; Visit Provider Urology
DX: N20.0 Calculus of kidney (principal)
CPT/HCPCS: 74018

== ENCOUNTER → 2022-09-01 | Outpatient (CLI) | payer OTHER, SELFPAY ==
--- NOTE | 2022-09-01 16:07 | RAD_ITS ---
STUDY: X-RAY - LEFT HAND, ATTENTION FIFTH FINGER REASON FOR EXAM: Male, 41 years old. PAIN -- left 5th digit TECHNIQUE: 3 view(s) of the finger were obtained. COMPARISON: None. FINDINGS: Normal metacarpal head. Normal metacarpophalangeal joint. Normal proximal phalanx. Normal middle phalanx. Normal distal phalanx. Normal proximal interphalangeal joint. Normal distal interphalangeal joint. There is no demonstrated fracture. RAD/Finger(s) Min 2 Views IMPRESSION: Normal x-ray examination of the finger. Electronically Signed: Pancho Smith MD at 19:38 EDT ,
== END | disposition home or self-care (01) ==
LOC: MTRAD 16:03
PROVIDERS: PCP Family Medicine; Referring Provider Family Medicine; Visit Provider Family Medicine
DX: M79.646 Pain in unspecified finger(s) (principal)
CPT/HCPCS: 73140

== ENCOUNTER → 2022-09-01 | Outpatient (CLI) | payer OTHER, SELFPAY | END | disposition home or self-care (01) | PROVIDERS: PCP Family Medicine; Referring Provider Family Medicine; Visit Provider Family Medicine | DX: M79.646 Pain in unspecified finger(s) (principal) ==

== ENCOUNTER 2022-11-03 20:27 | Emergency (ER) | payer OTHER, SELFPAY ==
[2022-11-03 20:28] VITALS: BP 158/90; PULSE 87; RESP 18; TEMP 36.6; O2SAT 99; BMI 33.5
[2022-11-03 22:05] VITALS: RESP 16; O2SAT 97
--- NOTE | 2022-11-03 22:06 | EX.ED.DYSGE1 ---
HPI History of Present Illness Chief Complaint: Allergic Reaction Informant: patient Narrative Narrative: Patient is a 41-year-old male with prior history of severe reaction to honeybee sting in the late (had localized extensive swelling and is previously been prescribed an EpiPen) presenting after loss sting. Patient has 3 stings, 2 on his right upper extremity 1 on his left upper extremity. He took 50 mg of oral Benadryl capsules and then about 20 mL of liquid Benadryl thinking that would work well faster. He has done cool compresses. He continues have localized pain and redness. Denies any difficulty breathing, mouth swelling, wheezing, vomiting, diarrhea or hives. Does have some mild nausea. No other complaints at this time. Does not currently have an EpiPen at home. [facility] Medical History Anxiety Heartburn Sleep apnea Home Medications albuterol sulfate 90 mcg/actuation aerosol inhaler (Proventil HFA) 2 puff inhalation Q6H PRN shortness of breath or wheezing #8.5 grams 01/08/21 [Rx Last Taken Unknown] dexamethasone 6 mg tablet (Decadron) 6 mg PO DAILY #10 tabs 01/08/21 [Rx Last Taken Unknown] epinephrine 0.3 mg/0.3 mL injection, auto-injector 0.3 mg (0.3 mL) IM Q10M PRN PRN anaphylaxis #2 ea 11/03/22 [Rx Last Taken Unknown] famotidine 20 mg tablet (Pepcid) 20 mg PO DAILY #7 tabs 11/03/22 [Rx Last Taken Unknown] prednisone 20 mg tablet 40 mg (2 x 20 mg) PO DAILY #8 tabs 11/03/22 [Rx Last Taken Unknown] Allergy/AdvReac Type Severity Reaction Status Date / Time amoxicillin AdvReac Upset Verified 11/03/22 20:31 Stomach Family History Father Diabetes Parkinsons Mother Hypertension Surgical History [place] teeth extracted Social History Smoking Status: Never smoker ROS ROS ED Constitutional Constitutional ED: Denies chills, fever(s) or sweats ENT ENT ED: Reports other Details: No mouth swelling ; Denies sore throat Cardiovascular Cardiovascular: Denies chest pain or palpitations Respiratory/Chest Respiratory/Chest: Denies cough or dyspnea Gastrointestinal Gastrointestinal: Reports nausea; Denies abdominal pain, diarrhea or vomiting Musculoskeletal Musculoskeletal: Denies arthralgias or myalgias Integumentary Reports rash and other Details: No hives Neurologic Neurologic: Denies headache(s) or weakness EXAM Physical Exam Const Vital Signs: 11/03/22 20:28 Temperature 97.9 F Temperature Source Temporal Pulse Rate 87 Respiratory Rate 18 Blood Pressure 158/90 H Blood Pressure Mean 112 Pulse Ox 99 Oxygen Delivery Method Room Air Positive well nourished and well developed General Appearance ED: well developed and NAD HEENT Reports moist mucous membranes HEENT Narrative: Normal oropharynx, no edema of the lips, tongue or oropharynx. Eyes PERRL and EOMs intact bilaterally Neck supple Neck Narrative: No stridor Normal phonation Chest Wall inspection of chest normal Resp normal respiratory effort and clear to auscultation bilaterally Auscultation: Negative for wheezes Cardio regular rate, regular rhythm and no murmurs GI normal to inspection, nondistended, normoactive bowel sounds and non-tender Extremity normal to inspection General Extremety ED: Negative for edema General Extremity: Negative for edema Neuro oriented x3 Sensorium / Orientation: alert Motor Exam: Negative for general weakness Psych mental status grossly normal Skin Skin Narrative: Patient has 3 localized areas of slightly raised erythema consistent with localized irritation from lasting. No retained stingers. 1 on the right arm, 1 on the anterior right shoulder and 1 on the left posterior upper arm. MDM MDM MDM Narrative Medical decision making narrative: Patient evaluated for localized reaction associated bee stings. Does have some mild nausea. Does not appear to have anaphylaxis. Will be treated empirically with steroids and Pepcid and he will continue take [id number] Benadryl. Counseled that the maximum dose of Benadryl at home is 50 mg every 6 hours. Is given a paper prescription for epinephrine as he is not sure if he wants to have it filled right now. Counseled on signs of anaphylaxis including difficulty breathing, wheezing, throat swelling, mouth swelling or hives in conjunction with nausea and vomiting. Given return precautions emergency room. He verbalizes agreement understand this plan. Discharged home in stable condition. Discharge Plan Triage Chief Complaint: Allergic Reaction ED Provider: Sugar Ferrell Dx/Rx/DC Orders Clinical Impression: Accidental wasp sting, Allergic reaction Instructions: ED Insect Sting, Local Reaction Prescriptions: New prednisone 20 mg tablet 40 mg PO DAILY Qty: 8 0RF famotidine [Pepcid] 20 mg tablet 20 mg PO DAILY Qty: 7 0RF epinephrine 0.3 mg/0.3 mL auto-injector 0.3 mg IM Q10M PRN PRN (Reason: anaphylaxis) Qty: 2 0RF No Action dexamethasone [Decadron] 6 mg tablet 6 mg PO DAILY Qty: 10 0RF albuterol sulfate [Proventil HFA] 90 mcg/actuation HFA aerosol inhaler 2 puff inhalation Q6H PRN (Reason: shortness of breath or wheezing) Qty: 8.5 0RF Primary Care Provider: Dilshad Stubbs Referrals: Dilshad Stubbs MD [Primary Care Provider] - Activity Restrictions/Additional Instructions: You may also continue to take [id number] Benadryl up to 50 mg every 6 hours as needed for itching or localized allergic reaction symptoms. Do cool compresses to the areas. You can also apply topical [id number] hydrocortisone cream.
[2022-11-03] MEDS: Famotidine 20 MG Tablet PO (22:21)
[2022-11-03] MEDS: predniSONE 20 MG Tablet 60 MG PO (22:21)
== END 2022-11-03 22:26 | disposition home or self-care (01) ==
PROVIDERS: Emergency Provider Emergency Medicine; PCP Family Medicine; Visit Provider Emergency Medicine
DX: T63.461A Toxic effect of venom of wasps, accidental (unintentional), initial encounter (principal); R11.0 Nausea; Z79.899 Other long term (current) drug therapy
CPT/HCPCS: 99283

== ENCOUNTER → 2022-11-26 | Outpatient (CLI) | payer OTHER, SELFPAY ==
[2022-11-26 11:15] LABS: Anion Gap 8 (5-15); BUN 15 mg/dL (7-18); BUN/Creat Ratio 16.6 RATIO (10-20); Chloride 107 mmol/L (98-107); Cholesterol 182 mg/dL (200); EST Glomerular Filtration Rate 97 mL/min (>60); Est Glom Filt Rate - Afr Amer 117 mL/min (>60); Glucose 89 mg/dL (74-106); High Density Lipoprotein 52 mg/dL; Potassium 3.5 mmol/L (3.5-5.1); Sodium Level 139 mmol/L (136-145); Triglycerides 150 mg/dL; Very Low Density Lipoprotein 30 mg/dL (5-40)
== END | disposition home or self-care (01) ==
LOC: MTLAB 08:55
PROVIDERS: PCP Family Medicine; Referring Provider Family Medicine; Visit Provider Family Medicine
DX: Z13.220 Encounter for screening for lipoid disorders (principal); Z13.1 Encounter for screening for diabetes mellitus
CPT/HCPCS: 36415; 80048; 80061

== ENCOUNTER → 2023-04-18 | Outpatient (CLI) | payer OTHER, SELFPAY ==
--- OUTSIDE RECORDS SUMMARY | 2023-04-18 06:39 | XMS RPT_ITS | CCD ---
Author Name Unknown Address [address] [place] [address] Organization [facility] Care Team Providers Care Load Planner Name Role Phone Kelly Porter DC Unavailable Sharona Cotter Unavailable Unavailable Sharona Cotter Unavailable Unavailable Sharona Cotter Unavailable Unavailable Kelly Porter DC Unavailable Stanislav Fine MD Primary Care Provider STANISLAV FINE Primary Care Unavailanita e STANISLAV FINE Primary Care Unavailanita e Allergies Allergy Classification Reported Allergen(s) Allergy Type Date of Onset Reaction(s) Facility (4 sources) Amoxicillin; Translations: [AMOXICILLIN] Drug Allergy 05-06-2022 GI Upset [facility] Medications Current Medications Medication Drug Class(es) Dates Sig (Normalized) Sig (Original) cephalexin 500 mg oral capsule (2 sources) Cephalosporin Antibacterial Start: 05-06-2022 End: 05-16-2022 take 1 capsule by mouth twice daily cephALEXin (KEFLEX) 500 mg capsule Take 1 capsule by mouth twice daily for 10 days. 20 capsule 0 05/06/2022 05/16/2022 Active Completed/Discontinued Medications Medication Drug Class(es) Dates Sig (Normalized) Sig (Original) CETIRIZINE HCL/PSEUDOEPHEDRINE (ZYRTEC-D ORAL) (3 sources) CETIRIZINE HCL/PSEUDOEPHEDRINE (ZYRTEC-D ORAL) Take by mouth. 0 Active Problems Active Problems Problem Classification Problem Date Documented Date Episodic/Chronic Disorders usually diagnosed in infancy, childhood, or adolescence (3 sources) Attention deficit hyperactivity disorder, predominantly inattentive type; Translations: [Other specified behavioral and emotional disorders with onset usually occurring in childhood and adolescence] Onset: 02-24-2014 02-24-2014 Chronic Other nervous system disorders (4 sources) Cervical radiculopathy; Translations: [Radiculopathy, cervical region] Onset: 11-11-2016 11-11-2016 Chronic Other upper respiratory disease (1 source) Congestion of nasal sinus; Translations: [Nasal congestion] Episodic Other upper respiratory infections (4 sources) Sore throat symptom; Translations: [Acute pharyngitis, unspecified] Episodic Unclassified (1 source) No current problems or disability 11-11-2016 Past or Other Problems Problem Classification Problem Date Documented Da te Episodic/Chronic Allergic reactions (3 sources) Environmental allergy; Translations: [Other allergy status, other than to drugs and biological substances] Onset: 02-24-2014 02-24-2014 Episodic Other bone disease and musculoskeletal deformities (10 sources) Segmental and somatic dysfunction; Translations: [Segmental and somatic dysfunction of lumbar region] Onset: 11-11-2016 12-14-2016 Episodic Results Test Name Value Interpretation Reference Range Facil ity Vital Signs Date Time Vital Sign Value Performing Clinician Facility 05-29-2022 08:32-0500 Body temperature 98.2 [degF] María aBrajas APRN.CNP Work Phone: [facility] 05-29-2022 08:32-0500 Body weight 121.56 kg María Barajas APRN.CNP Work Phone: [facility] 05-29-2022 08:32-0500 Diastolic blood pressure 68 mm[Hg] María Barajas APRN.CNP Work Phone: [facility] 05-29-2022 08:32-0500 Heart rate 80 /min María Barajas APRN.CNP Work Phone: [facility] 05-29-2022 08:32-0500 Respiratory rate 16 /min María Barajas APRN.CNP Work Phone: [facility] 05-29-2022 08:32-0500 SaO2% (BldA) [Mass fraction] 96 % María Barajas APRN.CNP Work Phone: [facility] 05-29-2022 08:32-0500 Systolic blood pressure 122 mm[Hg] María Barajas APRN.HEADHUNTER Work Phone: [facility] 05-06-2022 07:24-0500 Body temperature 97.11 [degF] Krislyn Aberegg PA Work Phone: [facility] 05-06-2022 07:24-0500 Body weight 120.66 kg Krislyn Aberegg PA Work Phone: [facility] 05-06-2022 07:24-0500 Diastolic blood pressure 76 mm[Hg] Krislyn Aberegg PA Work Phone: [facility] 05-06-2022 07:24-0500 Heart rate 94 /min Krislyn Aberegg PA Work Phone: [facility] 05-06-2022 07:24-0500 Respiratory rate 21 /min Krislyn Aberegg PA Work Phone: [facility] 05-06-2022 07:24-0500 SaO2% (BldA) [Mass fraction] 96 % Krislyn Aberegg PA Work Phone: [facility] 05-06-2022 07:24-0500 Systolic blood pressure 108 mm[Hg] Krislyn Aberegg PA Work Phone: [facility] 11-11-2016 17:22-0400 BMI (Body Mass Index) 35.26 kg/m2 [facility] Work Phone: 11-11-2016 17:22-0400 Height 182.88 cm [facility] Work Phone: 11-11-2016 17:22-0400 Pulse (Heart Rate) 87 /min [facility] Work Phone: 11-11-2016 17:22-0400 Respiratory Rate 23 /min [facility] Work Phone: 11-11-2016 17:22-0400 Weight 117.94 kg Sharona Cotter [facility] Work Phone: Encounters Encounter Date Encounter Type Care Provider Facility Start: 05-29-2022 End: 05-29-2022 ambulatory STANISLAV FINE Facility:[facility] Start: 05-29-2022 End: 05-29-2022 Patient encounter procedure María Barajas CNC GRINDER.HEADHUNTER Work Phone: [facility] Procedures Date Procedure Procedure Detail Performing Clinician Start: 05-29-2022 STREP A MOLECULAR (POC) Ritu Brown APRN.HEADHUNTER Work Phone: Start: 05-06-2022 STREP A MOLECULAR (POC) Joselo Moore MD Work Phone: Start: 12-13-2016 End: 12-14-2016 Chiropractic manipulation Kelly Porter DC Work Phone: Start: 11-11-2016 End: 11-11-2016 Dietary management education, guidance, and counseling Kelly Porter DC Start: 11-11-2016 End: 11-11-2016 Chiropract manj 1-2 regions Kelly Porter DC Work Phone: Start: 11-11-2016 End: 11-11-2016 X-ray exam of neck spine Kelly Beauchamp Work Phone: Plan of Treatment Date Care Activity Detail Author Start: 05-06-2022 End: 05-20-2022 Influenza virus A and B RNA and SARS-CoV-2 (COVID-19) N gene panel - Respiratory specimen by SHEREEN with probe detection COVID WITH FLUA+B, ROUTINE Microbiology Routine URI, acute Expected: 05/06/2022, Expires: 05/20/2022 [facility] Work Phone: Payers Date Payer Category Payer Unknown [id number] 2021 Unknown [id number] 2021 Unknown [id number] Social History Date Type Detail Facility Start: 09-08-2012 Tobacco smoking stat us NHIS Never smoked tobacco [facility] Work Phone: Start: 09-08-2012 Tobacco use and exposure Smokeless tobacco non-user [facility] Work Phone: Start: 05-06-2022 End: 05-29-2022 Alcohol intake Not Asked [facility] Start: 1980 Sex Assigned At Not on file [facility] Progress note 05-29-2022 Note Date & Type Note Facility 05-29-2022 Note HNO ID: [id number] Author: María Barajas APRN.HEADHUNTER Service: ? Author Type: Nurse Practitioner Type: Progress Notes Filed: 05/29/2022 9:01 AM Note Text: CC: Patient presents with: Sore Throat: x 1 day HPI: Jaden Dee is a 41 year old male who presents to the office with complaint of sore throat for the past day. Symptoms are staying the same. Associated symptoms includes sore throat. Denies fever, nausea, vomiting , and diarrhea. Treatments tried include nothing so far. with no relief of symptoms. Sick contacts: unknown. History of asthma, frequent episodes of bronchitis, chronic bronchitis, bronchiectasis or COPD: No Smoker: No Seasonal/environmental allergies: No The ROS is otherwise negative. The patient's pmh, medications, allergies, and past visits are reviewed. PHYSICAL EXAM: BP 122/68 Pulse 80 Temp 36.8 ?C (98.2 ?F) Resp 16 Wt 121.6 kg (268 lb) SpO2 96% General appearance: alert, cooperative, pleasant, in no acute distress Head: Normocephalic Eyes: EOM's intact, conjunctiva pink and moist, no icterus, sclera white, non-injected Ears: Right ear: External ear/canal- Normal, TM - clear with good landmarks. Left ear: External ear/canal- Normal, TM - clear with good landmarks Oropharynx:moist without lesions, No erythema, exudates or tonsillar hypertrophy. Heart: Negative. RRR without obvious murmur, gallop, or rubs. No ectopy. Lungs: clear to auscultation, without rales or wheeze, good air exchange PAST MEDICAL HISTORY Diagnosis Date NEGATIVE MEDICAL HISTORY PAST SURGICAL HISTORY Procedure Laterality Date NONE ALLERGIES Amoxicillin MEDICATIONS CETIRIZINE HCL/PSEUDOEPHEDRINE (ZYRTEC-D ORAL) Take by mouth. PSYLLIUM SEED, WITH SUGAR, (METAMUCIL ORAL) Take 10 capsules by mouth once daily. DAILY MULTI-VITAMIN ORAL Take 1 tablet by mouth once daily. lisdexamfetamine (VYVANSE) 30 mg capsule Take 30 mg by mouth once daily. (Patient not taking: Reported on 05/06/2022) FAMILY HISTORY Problem Relation Age of Onset other (parkinson's [Other]) Father Glaucoma Father Diabetes Father other (cva [Other]) Father other (arrhythmia [Other]) Father Skin Cancer Father Hypertension Mother other (macular myopathy] [Other]) Mother Social History Tobacco Use Smoking status: Never Smokeless tobacco: Never ASSESSMENT/PLAN: 1. Sore throat - ICD9: 462, ICD10: J02.9 - STREP A MOLECULAR (POC) - neg Prednisone taper Prescription instructions reviewed with patient as applicable. Potential red flag symptoms discussed with the patient. Reviewed appropriate action plan to take if red flag symptoms occur. Patient agreeable to treatment plan. María Barajas APRN.[facility] History of Present illness Narrative 05-29-2022 María Barajas APRN.[facility] - 05/29/2022 8:58 AM EST Note Date & Type Note Facility 05-29-2022 History of Presen t illness Narrative CC: Patient presents with: Sore Throat: x 1 day HPI: Jaden Dee is a 41 year old male who presents to the office with complaint of sore throat for the past day. Symptoms are staying the same. Associated symptoms includes sore throat. Denies fever, nausea, vomiting , and diarrhea. Treatments tried include nothing so far. with no relief of symptoms. Sick contacts: unknown. History of asthma, frequent episodes of bronchitis, chronic bronchitis, bronchiectasis or COPD: No Smoker: No Seasonal/environmental allergies: No The ROS is otherwise negative. The patient's pmh, medications, allergies, and past visits are reviewed. PHYSICAL EXAM: BP 122/68 Pulse 80 Temp 36.8 C (98.2 F) Resp 16 Wt 121.6 kg (268 lb) SpO2 96% General appearance: alert, cooperative, pleasant, in no acute distress Head: Normocephalic Eyes: EOM's intact, conjunctiva pink and moist, no icterus, sclera white, non-injected Ears: Right ear: External ear/canal- Normal, TM - clear with good landmarks. Left ear: External ear/canal- Normal, TM - clear with good landmarks Oropharynx:moist without lesions, No erythema, exudates or tonsillar hypertrophy. Heart: Negative. RRR without obvious murmur, gallop, or rubs. No ectopy. Lungs: clear to auscultation, without rales or wheeze, good air exchange PAST MEDICAL HISTORY Diagnosis Date NEGATIVE MEDICAL HISTORY PAST SURGICAL HISTORY Procedure Laterality Date NONE ALLERGIES Amoxicillin MEDICATIONS CETIRIZINE HCL/PSEUDOEPHEDRINE (ZYRTEC-D ORAL) Take by mouth. PSYLLIUM SEED, WITH SUGAR, (METAMUCIL ORAL) Take 10 capsules by mouth once daily. DAILY MULTI-VITAMIN ORAL Take 1 tablet by mouth once daily. lisdexamfetamine (VYVANSE) 30 mg capsule Take 30 mg by mouth once daily. (Patient not taking: Reported on 05/06/2022) FAMILY HISTORY Problem Relation Age of Onset other (parkinson's [Other]) Father Glaucoma Father Diabetes Father other (cva [Other]) Father other (arrhythmia [Other]) Father Skin Cancer Father Hypertension Mother other (macular myopathy] [Other]) Mother Social History Tobacco Use Smoking status: Never Smokeless tobacco: Never ASSESSMENT/PLAN: 1. Sore throat - ICD9: 462, ICD10: J02.9 - STREP A MOLECULAR (POC) - neg Prednisone taper Prescription instructions reviewed with patient as applicable. Potential red flag symptoms discussed with the patient. Reviewed appropriate action plan to take if red flag symptoms occur. Patient agreeable to treatment plan. María Barajas APRN.FRANNY documented in this encounter [facility] Note 05-06-2022 Telephone Encounter - Mimi Lauren MA - 05/06/2022 7:15 PM ESTTelephone Encounter - Mimi Lauren MA - 05/06/2022 7:11 PM EST Note Date & Type Note Facility 05-06-2022 Miscellaneous Notes Formattin g of this note might be different from the original. Pt was notified of the results. Pt verbalized understanding. Mimi Lauren MA ----- Message from Radha Troy APRN.HEADHUNTER sent at 05/06/2022 6:24 PM EST ----- Please advise patient the COVID/flu test was negative. documented in this encounter [facility] Progress note 05-06-2022 Note Date & Type Note Facility 05-06-2022 Note HNO ID: [id number] Author: EL Batres Service: ? Author Type: Physician Associate Designer Type: Progress Notes Filed: 05/06/2022 7:39 AM Note Text: This note was created using [employer]. Subjective Jaden Dee is a 41 year old male. HPI 41-year-old male presents for sore throat, congestion, headache. Patient states that he has had a sore throat for the past 5 days. He has also had congestion, postnasal drip and headache. He states that symptoms started on Tuesday. He has not had any fevers. No vomiting or diarrhea. No sick contacts that he is aware of. PAST MEDICAL HISTORY Diagnosis Date NEGATIVE MEDICAL HISTORY PAST SURGICAL HISTORY Procedure Laterality Date NONE ALLERGIES Amoxicillin MEDICATIONS CETIRIZINE HCL/PSEUDOEPHEDRINE (ZYRTEC-D ORAL) Take by mouth. PSYLLIUM SEED, WITH SUGAR, (METAMUCIL ORAL) Take 10 capsules by mouth once daily. DAILY MULTI-VITAMIN ORAL Take 1 tablet by mouth once daily. lisdexamfetamine (VYVANSE) 30 mg capsule Take 30 mg by mouth once daily. (Patient not taking: Reported on 05/06/2022) FAMILY HISTORY Problem Relation Age of Onset other (parkinson's [Other]) Father Glaucoma Father Diabetes Father other (cva [Other]) Father other (arrhythmia [Other]) Father Skin Cancer Father Hypertension Mother other (macular myopathy] [Other]) Mother Social History Tobacco Use Smoking status: Never Smokeless tobacco: Never Review of Systems Constitutional: Positive for chills. Negative for fever. HENT: Positive for congestion, postnasal drip and sore throat. Respiratory: Negative for cough and shortness of breath. Gastrointestinal: Negative for diarrhea and vomiting. Objective BP 108/76 Pulse 94 Temp 36.2 ?C (97.1 ?F) Resp 21 Wt 120.7 kg (266 lb) SpO2 96% Physical Exam Vitals and nursing note reviewed. Constitutional: General: He is not in acute distress. Appearance: Normal appearance. He is not toxic-appearing. HENT: Right Ear: Tympanic membrane and ear canal normal. Left Ear: Tympanic membrane and ear canal normal. Nose: Congestion present. Mouth/Throat: Mouth: Mucous membranes are moist. Pharynx: Uvula midline. Posterior oropharyngeal erythema and uvula swelling present. Tonsils: No tonsillar exudate. 1+ on the right. 1+ on the left. Comments: 1+ tonsillar swelling and mild uvula swelling noted. Erythema in the back of the throat. No exudates. No abscess. Uvula midline. Eyes: Conjunctiva/sclera: Conjunctivae normal. Cardiovascular: Rate and Rhythm: Normal rate and regular rhythm. Pulmonary: Effort: Pulmonary effort is normal. Breath sounds: Normal breath sounds. Skin: General: Skin is warm and dry. Neurological: Mental Status: He is alert. Assessment and Plan ASSESSMENT/PLAN: 1. Sore throat - ICD9: 462, ICD10: J02.9 (primary diagnosis) - STREP A MOLECULAR (POC) 2. URI, acute - ICD9: 465.9, ICD10: J06.9 - Discussed viral etiology and rationale for treatment. - Symptomatic treatment with prn analgesia - Supportive care with fluids and rest - COVID WITH FLUA+B, ROUTINE - out of window for tamiflu and antiviral for covid. 3. Strep pharyngitis - ICD9: 034.0, ICD10: J02.0 - suspect strep - Alere Strep Test positive, no culture pending - Keflex x 10 days - Discussed supportive care treatment with fluids, rest and analgesia. Diagnosis and treatment plan were discussed and questions were answered to the patient's satisfaction. Pt acknowledged understanding of concepts and follow up plan. Specific signs and symptoms that would indicate the need for higher level of care were discussed in detail warranting prompt ER evaluation. EL Batres [facility] History of Present illness Narrative 05-06-2022 EL Batres - 05/06/2022 7:31 AM EST Note Date & Type Note Facility 05-06-2022 History of Presen t illness Narrative This note was created using [employer]. Subjective Jaden Dee is a 41 year old male. HPI 41-year-old male presents for sore throat, congestion, headache. Patient states that he has had a sore throat for the past 5 days. He has also had congestion, postnasal drip and headache. He states that symptoms started on Tuesday. He has not had any fevers. No vomiting or diarrhea. No sick contacts that he is aware of. PAST MEDICAL HISTORY Diagnosis Date NEGATIVE MEDICAL HISTORY PAST SURGICAL HISTORY Procedure Laterality Date NONE ALLERGIES Amoxicillin MEDICATIONS CETIRIZINE HCL/PSEUDOEPHEDRINE (ZYRTEC-D ORAL) Take by mouth. PSYLLIUM SEED, WITH SUGAR, (METAMUCIL ORAL) Take 10 capsules by mouth once daily. DAILY MULTI-VITAMIN ORAL Take 1 tablet by mouth once daily. lisdexamfetamine (VYVANSE) 30 mg capsule Take 30 mg by mouth once daily. (Patient not taking: Reported on 05/06/2022) FAMILY HISTORY Problem Relation Age of Onset other (parkinson's [Other]) Father Glaucoma Father Diabetes Father other (cva [Other]) Father other (arrhythmia [Other]) Father Skin Cancer Father Hypertension Mother other (macular myopathy] [Other]) Mother Social History Tobacco Use Smoking status: Never Smokeless tobacco: Never Review of Systems Constitutional: Positive for chills. Negative for fever. HENT: Positive for congestion, postnasal drip and sore throat. Respiratory: Negative for cough and shortness of breath. Gastrointestinal: Negative for diarrhea and vomiting. Objective BP 108/76 Pulse 94 Temp 36.2 C (97.1 F) Resp 21 Wt 120.7 kg (266 lb) SpO2 96% Physical Exam Vitals and nursing note reviewed. Constitutional: General: He is not in acute distress. Appearance: Normal appearance. He is not toxic-appearing. HENT: Right Ear: Tympanic membrane and ear canal normal. Left Ear: Tympanic membrane and ear canal normal. Nose: Congestion present. Mouth/Throat: Mouth: Mucous membranes are moist. Pharynx: Uvula midline. Posterior oropharyngeal erythema and uvula swelling present. Tonsils: No tonsillar exudate. 1+ on the right. 1+ on the left. Comments: 1+ tonsillar swelling and mild uvula swelling noted. Erythema in the back of the throat. No exudates. No abscess. Uvula midline. Eyes: Conjunctiva/sclera: Conjunctivae normal. Cardiovascular: Rate and Rhythm: Normal rate and regular rhythm. Pulmonary: Effort: Pulmonary effort is normal. Breath sounds: Normal breath sounds. Skin: General: Skin is warm and dry. Neurological: Mental Status: He is alert. Assessment and Plan ASSESSMENT/PLAN: 1. Sore throat - ICD9: 462, ICD10: J02.9 (primary diagnosis) - STREP A MOLECULAR (POC) 2. URI, acute - ICD9: 465.9, ICD10: J06.9 - Discussed viral etiology and rationale for treatment. - Symptomatic treatment with prn analgesia - Supportive care with fluids and rest - COVID WITH FLUA+B, ROUTINE - out of window for tamiflu and antiviral for covid. 3. Strep pharyngitis - ICD9: 034.0, ICD10: J02.0 - suspect strep - Alere Strep Test positive, no culture pending - Keflex x 10 days - Discussed supportive care treatment with fluids, rest and analgesia. Diagnosis and treatment plan were discussed and questions were answered to the patient's satisfaction. Pt acknowledged understanding of concepts and follow up plan. Specific signs and symptoms that would indicate the need for higher level of care were discussed in detail warranting prompt ER evaluation. EL Batres documented in this encounter [facility] Evaluation note Note Date & Type Note Facility documented in this encounter [facility] Evaluation note Note Date & Type Note [facility] Infection Onset Date Last Indicated Resolved Time COVID-19 Rule-Out 05/06/2022 05/06/2022 Infection Onset Date Last Indicated Resolved Time COVID-19 Rule-Out 05/06/2022 05/06/2022 05/06/2022 6:22 PM EST Summary Purpose Family History No Family History Records Found Advance Directives No Advanced Directives Records Found Additional Source Comments Source Comments (unrecognize d section and content) In the event this informatio n is protected by the Federal Confidentiality of Alcohol and Drug Abuse Patient Records regulations: The Federal rules restrict any use of the information to criminally investigate or prosecute any alcohol or drug abuse patient.[facility] the event this information is protected by the Federal Confidentiality of Alcohol and Drug Abuse Patient Records regulations: The Federal rules restrict any use of the information to criminally investigate or prosecute any alcohol or drug abuse patient.[facility] the event this information is protected by the Federal Confidentiality of Alcohol and Drug Abuse Patient Records regulations: The Federal rules restrict any use of the information to criminally investigate or prosecute any alcohol or drug abuse patient.[facility] Reason for Visit (unrecogniz ed section and content) Reason Comments Results Reason Comments Sore Throat x 1 day Care Teams (unrecognized sec tion and content) Load Planner Relationship Specialty Start Date End Date Stanislav Fine MD [address] [place] [address] PCP - General Family Medicine 02/24/14 Load Planner Relationship Specialty Start Date End Date Stanislav Fine MD [address] [place] [address] PCP - General Family Medicine 02/24/14 (unrecognized sect ion and content) No Status Records Found INFORMATION SOURCE (unrecogn ized section and content) FOR RECORDS PERTAINING TO PATIENTS WHO ARE OR HAVE BEEN ENROLLED IN A CHEMICAL DEPENDENCY/SUBSTANCEABUSE PROGRAM, SOME INFORMATION MAY BE OMITTED. This clinical summary was aggregated from multiple sources. Caution should be exercised in using it in the provision of clinical care. This summary normalizes information from multiple sources, and as a consequence, information in this document may materially change the coding, format and clinical context of patient data. In addition, data may be omitted in some cases. CLINICAL DECISIONS SHOULD BE BASED ON THE PRIMARY CLINICAL RECORDS. [facility] [employer] [facility]. provides no warranty or guarantee of the accuracy or completeness of information in this document.
--- NOTE | 2023-04-18 06:41 | MRI_ITS ---
HISTORY: Low back and right leg pain since 02/2023. TECHNIQUE: Multiplanar and multisequence MR images of the lumbar spine were obtained without intravenous contrast. 144 images. COMPARISON: XR 03/31/2023. FINDINGS: VERTEBRAE: Vertebral body heights maintained. Mild degenerative endplate changes of L4-5 and L5-S1. No other significant bone marrow signal abnormality. ALIGNMENT: No anterior or posterior subluxation. CONUS: Normal morphology and position of the conus medullaris at L1. INTERVERTEBRAL DISCS: T12-L1: No significant signal abnormality, posterior disc protrusion, central canal stenosis, or foraminal narrowing based on the sagittal images. L1-2, L2-3, L3-4: No significant signal abnormality, posterior disc protrusion, central canal stenosis, or foraminal narrowing. L4-5: Mild disc bulge with facet arthropathy superimposed on a developmentally narrow spinal canal resulting in mild central canal stenosis, mild right, and moderate left foraminal narrowing L5-S1: Mild posterior disc protrusion with annular fissure and facet arthropathy resulting in minimal narrowing of the thecal sac, moderate right, and mild left foraminal narrowing. SOFT TISSUES: No paraspinal fluid collection. Mild posterior subcutaneous edema. MRI/Spine Lumbar (Routine) IMPRESSION: Mild degenerative disc disease resulting in mild spinal canal stenosis with moderate left and mild right foraminal narrowing at L4-5. Moderate right and mild left foraminal narrowing of L5-S1. Electronically Signed: Nusrat Valles MD at 9:13 EST ,
== END | disposition home or self-care (01) ==
PROVIDERS: PCP Family Medicine; Referring Provider Orthopaedic Surgery Orthopaedic Surgery of the Spine; Visit Provider Orthopaedic Surgery Orthopaedic Surgery of the Spine
DX: M54.16 Radiculopathy, lumbar region (principal)
CPT/HCPCS: 72148

== ENCOUNTER 2023-08-29 17:00 | Outpatient (RCR) | payer OTHER, SELFPAY ==
--- NOTE | 2023-04-06 17:20 | HP.PTEVAL ---
Patient's Visit Information Visit Information Visit Information: ELIE AGARWAL is a 42 year old M referred to Physical Therapy by Dr. Bret Aragon MD with a diagnosis of RADICULOPATHY ,LUMBAR REGION. Date of Evaluation: 04/06/23 Physical Therapist: Karl Espinosa, PT, Cert MDT, OCS Visit Plan Frequency: 2x /Week Duration: 4 Weeks Plan: PT INTERVENTIONS MCKENZE EX'S ,MANUAL THERAPY ,POSTURAL EX'S , PROGRESS TO DLS AND MODALTIES Subjective Subjective: This 42 y/o female presents to physical therapy with lumbar radiculopathy right leg. Patient has had lumbar radiculopathy with pain which progressively worsen. Patient had ER visit due to pain and had CTSCAN r/o kidney stones . Patient seen Family DR recommended Dr Aragon did x-rays and order MRI and start PT. Patient pain located right LB/sacral buttock to hamstrings. Described as sharp pain. Aggravating factors bending ,lifting ,twisting ,walking/standing and sitting. Alleviating factors Heat. Patient tried muscle relaxer and steroid pack. Coughing/sneezing+ . Bowel/bladder -. Patient c/o paresthesia/tingling toes. patient recalls no injury. Patient pain affects sleeping . No abnormal pain. Patient condtion affects QOL and function. Patient goals to decrease pain. 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 Right Lower Extremity: Pain Intensity (Out of 10): 7 Pain Intensity Range: 7 Right Back: Pain Intensity (Out of 10): 7 Objective Objective: POSTURE: mild forward posture guarded position GAIT: reciprocal pattern antalgic gait slow sherrie PALPATION: unremarkable NUERO: c/o paresthesia/tingling right foot ,reflexes L3-4,L4-5 ,L5-S1 2/3 LUMBAR ROM: flexion severe loss ,extension mod /severe loss ,side glides mod loss MMT: quads/hams 4/5 ,hip flexion 4/5 ,ankle 5/5 FLEXABLITY: hamstrings min tight Special Tests L/S Slump test left side: Negative L/S Slump test right side: Negative L/S Left Straight Leg Raise: Negative L/S Right Straight Leg Raise: Positive Lumbar Standing: Flexion - Mechanical Response: No effect Lumbar Standing: Flexion - Symptoms During Testing: Increases Lumbar Standing: Flexion - Symptoms After Testing: Worse Lumbar Standing: Extension - Mechanical Response: No effect Lumbar Standing: Extension - Symptoms During Testing: Increases Lumbar Standing: Extension - Symptoms After Testing: Worse Lumbar Standing: Right Side Glides - Mechanical Response: No effect Lumbar Standing: Right Side [place] - Symptoms During Testing: Increases Lumbar Standing: Right Side [place] - Symptoms After Testing: No worse Lumbar Standing: Left Side [place] - Mechanical Response: No effect Lumbar Standing: Left Side [place] - Symptoms During Testing: No effect Lumbar Standing: Left Side [place] - Symptoms After Testing: No effect Lumbar Lying: Flexion - Mechanical Response: No effect Lumbar Lying: Flexion - Symptoms During Testing: Increases Lumbar Lying: Flexion - Symptoms After Testing: Worse Lumbar Lying: Extension - Mechanical Response: No effect Lumbar Lying: Extension - Symptoms During Testing: Decreases Lumbar Lying: Extension - Symptoms After Testing: No better Balance/Special Test Scores Oswestry Low Back Score: 35 Goals Goal 1:: Patient to be I with HEP for lumbar Goal Time Frame: 4-6 Weeks Goal 2:: Patient to improve posture/body mechanics 80% of the time Goal Time Frame: 4-6 Weeks Goal 3:: Patient to improve lumbar ROM for function of recovery to put on shoes and job demands Goal Time Frame: 4-6 Weeks Goal 4:: Patient to demonstrate 50% improvement with less pain and improved function . Goal Time Frame: 4-6 Weeks Goal 5:: Patient to improve back oswestry score by 5 points to improve QOL and function Goal Time Frame: 4-6 Weeks Goal 6:: Normalize gait pattern Goal Time Frame: 4-6 Weeks Rehabilitation Potential Physical Therapy Diagnosis: This patient has lumbar radiculopathy due to disc derangement with with poor ROM lumbar, pain with motion testing and positioning worse with flexion and sitting thus will benefit from skilled PT Rehabilitation Potential: Good Anticipated Interventions Patient/Client Instruction: Educate patient on: Condition and Plan of Care For the Purpose of:: To decrease pain, To increase ROM, To improve muscle performance and motor function, To improve ability to perform ADL's, To increase tolerance to activity/condition/position, To improve ability of physical actions for home/community/work/leisure, To improve health of tissue, To decrease soft tissue restriction, To increase flexibility/ROM, To improve balance and To improve tolerance to ADL's Therapeutic Exercise to Include: Strength training, Body mechanics, Postural training, Flexibilty training, Dynamic Lumbar Stabilization and Viry Exercises For the Purpose of:: To decrease pain, To increase ROM, To improve muscle performance and motor function, To increase tolerance to activity/condition/position, To improve ability of physical actions for home/community/work/leisure, To improve health of tissue, To decrease soft tissue restriction, To increase flexibility/ROM, To reduce risk of recurrence, To prevent re-injury and To improve tolerance to ADL's Manual Therapy Techniques to Include: Mobilization For the Purpose of:: To decrease pain, To increase ROM, To improve health of tissue, To decrease soft tissue restriction and To increase flexibility/ROM TENS: Yes IF ES: Yes Cryotherapy (ice pack, ice massage): Yes Thermo therapy (hot pack): Yes Ultrasound (thermal/non thermal): Yes For the Purpose of:: To decrease pain, To decrease swelling/inflammation, To improve nutrient delivery to tissue, To increase oxygenation perfusion, To improve health of tissue and To decrease soft tissue restriction Text: Thank you for the opportunity to evaluate your patient. For Medicare and Medicare HMO plans, please review the plan of care and approve it. It will need to be FAXED BACK to us at [phone] for Medicare purposes. For Medicare only, by signing this I certify the plan of care. Please let me know if there are questions or concerns regarding this plan of care. Physician Signature: Date:
--- NOTE | 2023-04-06 18:07 | HP.PTEVAL_ITS ---
Patient's Visit Information Visit Information Visit Information: ELIE AGARWAL is a 42 year old M referred to Physical Therapy by Dr. Bret Aragon MD with a diagnosis of RADICULOPATHY ,LUMBAR REGION. Date of Evaluation: 04/06/23 Physical Therapist: Karl Espinosa, PT, Cert MDT, OCS Visit Plan Frequency: 2x /Week Duration: 4 Weeks Plan: PT INTERVENTIONS MCKENZE EX'S ,MANUAL THERAPY ,POSTURAL EX'S , PROGRESS TO DLS AND MODALTIES Subjective Subjective: This 42 y/o female presents to physical therapy with lumbar radiculopathy right leg. Patient has had lumbar radiculopathy with pain which progressively worsen. Patient had ER visit due to pain and had CTSCAN r/o kidney stones . Patient seen Family DR recommended Dr Aragon did x- rays and order MRI and start PT. Patient pain located right LB/sacral buttock to hamstrings. Described as sharp pain. Aggravating factors bending ,lifting ,twisting ,walking/standing and sitting. Alleviating factors Heat. Patient tried muscle relaxer and steroid pack. Coughing/sneezing+ . Bowel/bladder -. Patient c/o paresthesia/tingling toes. patient recalls no injury. Patient pain affects sleeping . No abnormal pain. Patient condtion affects QOL and function. Patient goals to decrease pain. 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 Pain Right Lower Extremity: Pain Intensity (Out of 10): 7 Pain Intensity Range: 7 Right Back: Pain Intensity (Out of 10): 7 Objective Objective: POSTURE: mild forward posture guarded position GAIT: reciprocal pattern antalgic gait slow sherrie PALPATION: unremarkable NUERO: c/o paresthesia/tingling right foot ,reflexes L3-4,L4-5 ,L5-S1 2/3 LUMBAR ROM: flexion severe loss ,extension mod /severe loss ,side glides mod loss MMT: quads/hams 4/5 ,hip flexion 4/5 ,ankle 5/5 FLEXABLITY: hamstrings min tight Special Tests L/S Slump test left side: Negative L/S Slump test right side: Negative L/S Left Straight Leg Raise: Negative L/S Right Straight Leg Raise: Positive Lumbar Standing: Flexion - Mechanical Response: No effect Lumbar Standing: Flexion - Symptoms During Testing: Increases Lumbar Standing: Flexion - Symptoms After Testing: Worse Lumbar Standing: Extension - Mechanical Response: No effect Lumbar Standing: Extension - Symptoms During Testing: Increases Lumbar Standing: Extension - Symptoms After Testing: Worse Lumbar Standing: Right Side Glides - Mechanical Response: No effect Lumbar Standing: Right Side [place] - Symptoms During Testing: Increases Lumbar Standing: Right Side [place] - Symptoms After Testing: No worse Lumbar Standing: Left Side [place] - Mechanical Response: No effect Lumbar Standing: Left Side [place] - Symptoms During Testing: No effect Lumbar Standing: Left Side [place] - Symptoms After Testing: No effect Lumbar Lying: Flexion - Mechanical Response: No effect Lumbar Lying: Flexion - Symptoms During Testing: Increases Lumbar Lying: Flexion - Symptoms After Testing: Worse Lumbar Lying: Extension - Mechanical Response: No effect Lumbar Lying: Extension - Symptoms During Testing: Decreases Lumbar Lying: Extension - Symptoms After Testing: No better Balance/Special Test Scores Oswestry Low Back Score: 35 Goals Goal 1:: Patient to be I with HEP for lumbar Goal Time Frame: 4-6 Weeks Goal 2:: Patient to improve posture/body mechanics 80% of the time Goal Time Frame: 4-6 Weeks Goal 3:: Patient to improve lumbar ROM for function of recovery to put on shoes and job demands Goal Time Frame: 4-6 Weeks Goal 4:: Patient to demonstrate 50% improvement with less pain and improved function . Goal Time Frame: 4-6 Weeks Goal 5:: Patient to improve back oswestry score by 5 points to improve QOL and function Goal Time Frame: 4-6 Weeks Goal 6:: Normalize gait pattern Goal Time Frame: 4-6 Weeks Rehabilitation Potential Physical Therapy Diagnosis: This patient has lumbar radiculopathy due to disc derangement with with poor ROM lumbar, pain with motion testing and positioning worse with flexion and sitting thus will benefit from skilled PT Rehabilitation Potential: Good Anticipated Interventions Patient/Client Instruction: Educate patient on: Condition and Plan of Care For the Purpose of:: To decrease pain, To increase ROM, To improve muscle performance and motor function, To improve ability to perform ADL's, To increase tolerance to activity/condition/position, To improve ability of physical actions for home/community/work/leisure, To improve health of tissue, To decrease soft tissue restriction, To increase flexibility/ROM, To improve balance and To improve tolerance to ADL's Therapeutic Exercise to Include: Strength training, Body mechanics, Postural training, Flexibilty training, Dynamic Lumbar Stabilization and Viry Exercises For the Purpose of:: To decrease pain, To increase ROM, To improve muscle performance and motor function, To increase tolerance to activity/condition/position, To improve ability of physical actions for home/community/work/leisure, To improve health of tissue, To decrease soft tissue restriction, To increase flexibility/ROM, To reduce risk of recurrence, To prevent re-injury and To improve tolerance to ADL's Manual Therapy Techniques to Include: Mobilization For the Purpose of:: To decrease pain, To increase ROM, To improve health of tissue, To decrease soft tissue restriction and To increase flexibility/ROM TENS: Yes IF ES: Yes Cryotherapy (ice pack, ice massage): Yes Thermo therapy (hot pack): Yes Ultrasound (thermal/non thermal): Yes For the Purpose of:: To decrease pain, To decrease swelling/inflammation, To improve nutrient delivery to tissue, To increase oxygenation perfusion, To improve health of tissue and To decrease soft tissue restriction Text: Thank you for the opportunity to evaluate your patient. For Medicare and Medicare HMO plans, please review the plan of care and approve it. It will need to be FAXED BACK to us at [phone] for Medicare purposes. For Medicare only, by signing this I certify the plan of care. Please let me know if there are questions or concerns regarding this plan of care. Physician Signature: Date:
--- NOTE | 2023-05-23 17:58 | HP.PTREVAL_ITS ---
Re-Evaluation Intro: Dr. Bret Aragon MD, It has been my pleasure to treat ELIE AGARWAL over the last 13 visits for RADICULOPATHY ,LUMBAR REGION. Please see the progress note below for an update on the physical therapy plan of care! Subjective Subjective: PATIENT STATES I FEEL LIKE I CAN ACTUALLY WALK BETTER AND SIT BETTER. HE REPORTS HE DOESN'T HAVE TO USE HIS ARMS TO HOLD HIMSELF UP IN SITTING MUCH NOW. PATIENT ALSO STATES THE SHOOTING PAIN DOWN MY LEG HAS DISAPPATED FOR THE MOST PART BUT IT DID KEEP ME UP LAST NIGHT. PATIENT REPORTS HE FEELS LIKE HE IS GETTING A WORK OUT IN THE POOL AND HE GOES HOME TIRED BUT GOOD TIRED. PATIENT STATES HE DEFINATE FEELS LIKE THERAPY IS HELPING AND HE GETS A LOT OF RELIEF WITH THE USE OF WEIGHTS IN THE DEEP END. PATIENT REPORTS THAT HE TOLD DR. ARAGON ABOUT HIS UPPER BACK PAIN BUT HE THINKS NOW THAT HIS LOWER BACK PAIN HAS CALMED DOWN HE IS NOTICING HIS UPPER BACK PAIN MORE AND HE ANSWERED THE OSWESTRY QUESTIONS BASED ON THAT. ALSO REPORTS HE TOLD HIS PAIN MGMT DOCTOR ABOUT IT 2 WKS AGO AND HE DX'D IT MUSCLE SPASM AND TOLD HIM TO TAKE TYLONOL AND IBUPROFEN FOR IT. WILL FOLLOW UP WITH HIM ABOUT IT NEEDED. RECEIVED LUMBAR JULIETA WITH SOME BENEFIT TOO BUT DURING THE PROCEEDURE STATES IT FELT LIKE MY LEG WAS BEING TORN OFF. Objective Objective/Function: PATIENT WAS SEEN TODAY FOR RE-ASSESSMENT OF PROGRESS TOWARD THE SET PT GOALS AND THE NEED FOR FURTHER PHYSICAL THERAPY VS READINESS FOR DISCHARGE. PATIENT HAS MADE GOOD PROGESS WITH PT BUT STILL HAS SIGNIFICANT LUMBAR MVMT LOSS ESPECIALLY INTO FLEXION. HE IS A GOOD CANDIDATE TO CONTINUE PT AND IS REQUESTING TO CONTINUE. UPON EXAM TODAY: PATIENT AMBULATES INDEP'LY INTO PT WITH A MILD LIMP ON THE R LE AND FAIR CADANCE. NO AD'S OR LOB. Sitting/Standing Posture: FAIR. ABLE TO CORRECT BUT STILL NOT ABLE TO MAINTAIN. Other Observations: INDEP TRANSFER SIT TO STAND WITHOUT UE ASSIST. Sensory deficit: MARCY LE LIGHT TOUCH SENSATION GROSSLY INTACT AND SYMMETRICAL ROM deficit: MARCY HS AND CALF TIGHTNESS. Motor deficit: MARCY LE'S GROSSLY 5/5 EXCEPT HIPS 4/5. L ANKLE DORSIFLEX STRENGTH WITH EVERSION IS 5/5 BUT IF PATIENT TRIES TO DORSIFLEX WITH ANKLE NEUTRAL HE GETS PAIN THAT STOPS HIM. HE REPORTS HE HAD DR. FINE LOOK AT IT AND DR. FINE TOLD HIM HE THINKS HE GETS A PINCHED NERVE WHEN HE TRIES TO WALK WITH HIS FEET POINTED FORWARD AND TO GO BACK TO WALKING WITH TOES OUT LIKE HE IS USE TO. Reflexes: UNABLE TO ELICIT MARCY LE DTR'S. Dural Signs: NEGATIVE MARCY LE'S. Lumbar mvmt loss: flex - MOD TO ENDY ext - MOD R SG - MOD L SG - MOD PATIENT C/O INCREASED R LBP WITH LUMBAR FLEXION ROM TESTING AND R HIP PAIN WITH R SG TESTING. C/O CENTRAL LBP WITH LUMBAR EXT ROM TESTING. REPEATED MVMT TESTING OF LUMBAR SPINE INCREASES BACK PAIN. Core strength: FAIR Palpation: NO ACUTE LUMBAR, SACRAL OR HIP TENDERNESS BUT MARCY THORACIC TENDERNESS R > LEFT. INCREASED MUSCLE TONE MARCY PARASPINALS. OTHER: ABLE TO SLS X > 10 SEC EA LEG. Plan Plan Plan: CONTINUE AQUATIC THERAPY 2-3 TIMES A WK X 3-4 WKS. PATIENT REPORTS 25 LB LIFTING LIMIT FROM PCP DR. FINE. POSTURE CORRECTION/STRENGTHENING, INSTRUCTION IN APPROPRIATE BODY MECHANICS AND ACTIVITY MODIFICATIONS. DLS STARTING WITH A NEUTRAL SPINE PROGRESSING ROM TOLERATED. MARCY LE ROM, STRETCHING AND STRENGTHENING. HEP INSTRUCTION. Balance/Gait/Functional tests Balance/Special Test Scores Oswestry Low Back Score: 21 Goals Goals Goal 1:: Patient to be I with HEP for lumbar Goal Time Frame: 4-6 Weeks Goal Progress: Progressing Goal 2:: Patient to improve posture/body mechanics 80% of the time Goal Time Frame: 4-6 Weeks Goal Progress: Progressing Goal 3:: Patient to improve lumbar ROM for function of recovery to put on shoes and job demands Goal Time Frame: 4-6 Weeks Goal Progress: Progressing Goal 4:: Patient to demonstrate 50% improvement with less pain and improved function . Goal Time Frame: 4-6 Weeks Goal Progress: Progressing Goal 5:: Patient to improve back oswestry score by 5 points to improve QOL and function Goal Time Frame: 4-6 Weeks Goal Progress: Goal Met Goal 6:: Normalize gait pattern Goal Time Frame: 4-6 Weeks Goal Progress: Progressing Anticipated Interventions Anticipated Interventions Patient/Client Instruction: Educate patient on: Condition and Plan of Care For the Purpose of:: To decrease pain, To increase ROM, To improve muscle performance and motor function, To improve ability to perform ADL's, To increase tolerance to activity/condition/position, To improve ability of physical actions for home/community/work/leisure, To improve health of tissue, To decrease soft tissue restriction, To increase flexibility/ROM, To improve balance and To improve tolerance to ADL's Therapeutic Exercise to Include: Strength training, Body mechanics, Postural training, Flexibilty training, Dynamic Lumbar Stabilization and Viry Exercises For the Purpose of:: To decrease pain, To increase ROM, To improve muscle performance and motor function, To increase tolerance to activity/cond ition/position, To improve ability of physical actions for home/community/work/leisure, To improve health of tissue, To decrease soft tissue restriction, To increase flexibility/ROM, To reduce risk of recurrence, To prevent re-injury and To improve tolerance to ADL's Manual Therapy Techniques to Include: Mobilization For the Purpose of:: To decrease pain, To increase ROM, To improve health of tissue, To decrease soft tissue restriction and To increase flexibility/ROM TENS: Yes IF ES: Yes Cryotherapy (ice pack, ice massage): Yes Thermo therapy (hot pack): Yes Ultrasound (thermal/non thermal): Yes For the Purpose of:: To decrease pain, To decrease swelling/inflammation, To improve nutrient delivery to tissue, To increase oxygenation perfusion, To improve health of tissue and To decrease soft tissue restriction Re-Evaluation Ending Re-evaluation ending: Please do not hesitate to contact me at [phone] by phone or if you have questions or concerns regarding this new plan of care! Sincerely, Felicitas Kenny, PT, Cert MDT
--- NOTE | 2023-06-20 18:09 | HP.PTREVAL ---
Re-Evaluation Intro: Dr. Bret Aragon MD, It has been my pleasure to treat ELIE AGARWAL over the last 24 visits for RADICULOPATHY ,LUMBAR REGION. Please see the progress note below for an update on the physical therapy plan of care! Subjective Subjective: PATIENT REPORTS SELF REFERRAL TO A PA AT A [facility] IN [place] (MR. DESAI) WHO REFERRED HIM TO ANOTHER PAIN MGMT DOCTOR FOR MORE SPINAL INJECTIONS. HE STATES THE PA RECOMMENDS HE SEE'S ANOTHER SPINE SURGEON FOR ANOTHER OPIONION IF THE INJECTION DO NOT HELP MORE THIS TIME. HE REPORTS THIS IS THE SECOND TIME HE HAS SEEN THIS PA BECAUSE HE ALSO SAW HIM IN 2023. STATES HE IS ALSO TAKING A GENERIC MED FOR [place] STARTING ABOUT 2 WKS AGO WITH BENEFIT. PAIN MGMT YFN'T PENDING WITH DR. LOPEZ IN Tuesday06/23/23. PATIENT REPORTS HE WANTS TO CONTINUE PT TO KEEP BUILDING UP STRENGTH IN HIS BACK TO TRY TO RETURN TO NORMAL AND BE ABLE TO LIFT HEAVY THINGS AT WORK. STILL ON LIGHT DUTY AT WORK UNDER DR. FINE HIS PCP. CONSTANT R LBP 2-7/10. INTERMITTENT R LATERAL THIGH PAIN 0-7/10. Objective Objective/Function: PATIENT WAS SEEN TODAY FOR RE-ASSESSMENT OF PROGRESS TOWARD THE SET PT GOALS AND THE NEED FOR FURTHER PHYSICAL THERAPY VS READINESS FOR DISCHARGE. PATIENT IS STILL MADING PROGESS WITH PT BUT STILL HAS SIGNIFICANT LUMBAR MVMT LOSS AND REPORTS OF PAIN AND FUNCTIONAL LIMITATIONS. HE IS A GOOD CANDIDATE TO CONTINUE PT AND IS REQUESTING TO CONTINUE. THIS PT IS REQUESTING HE GET A NEW PT ORDER FROM A CURRENT PHYSICIAN OF HIS CHOICE. HE IS AGREEABLE. HE IS ALSO AGREEABLE WITH THIS NOTE BEING COPIED TO HIS PCP DR. FINE. UPON EXAM TODAY: PATIENT AMBULATES INDEP'LY INTO PT WITH A MILD LIMP ON THE R LE AND FAIR CADANCE. NO AD'S OR LOB. PATIENT IS ABLE TO INDEP'LY TRANSFER FROM SIT TO STAND WITHOUT UE ASSIST. Sitting/Standing Posture: FAIR. ABLE TO CORRECT BUT STILL NOT ABLE TO MAINTAIN. Sensory deficit: MARCY LE LIGHT TOUCH SENSATION GROSSLY INTACT AND SYMMETRICAL ROM deficit: MARCY HS AND CALF TIGHTNESS. Motor deficit: MARCY LE'S GROSSLY 5/5 EXCEPT HIPS 4+/5. Reflexes: UNABLE TO ELICIT MARCY LE DTR'S. Dural Signs: NEGATIVE MARCY LE'S. Lumbar mvmt loss: flex - MOD ext - MOD R SG - MOD L SG - MOD PATIENT C/O INCREASED R LBP WITH LUMBAR FLEXION ROM TESTING (BUT MUCH BETTER THAN IT WAS) AND R HIP PAIN WITH R SG TESTING - NW. C/O CENTRAL LBP WITH LUMBAR EXT ROM TESTING. REPEATED MVMT TESTING OF LUMBAR SPINE INCREASES BACK PAIN - NW. Core strength: FAIR Palpation: NO ACUTE THORACIC, LUMBAR, SACRAL OR HIP TENDERNESS WITH PALPATION TODAY. INCREASED MUSCLE TONE MARCY PARASPINALS. OTHER: ABLE TO SLS X > 10 SEC EA LEG WITHOUT PELVIC DROP. Plan Plan Plan: CONTINUE AQUATIC THERAPY 2X'S A WK X 8 VISITS THEN RECHECK WITH GOAL OF TRANSITION TO INDEP POOL PROGRAM OR LAND PT. PATIENT REPORTS 25 LB LIFTING LIMIT FROM PCP DR. FINE. POSTURE CORRECTION/STRENGTHENING, INSTRUCTION IN APPROPRIATE BODY MECHANICS AND ACTIVITY MODIFICATIONS. DLS STARTING WITH A NEUTRAL SPINE PROGRESSING ROM TOLERATED. MARCY LE ROM, STRETCHING AND STRENGTHENING. HEP INSTRUCTION. Balance/Gait/Functional tests Balance/Special Test Scores Oswestry Low Back Score: 18 Goals Goals Goal 1:: Patient to be I with HEP for lumbar Goal Time Frame: 4-6 Weeks Goal Progress: Progressing Goal 2:: Patient to improve posture/body mechanics 80% of the time Goal Time Frame: 4-6 Weeks Goal Progress: Progressing Goal 3:: Patient to improve lumbar ROM for function of recovery to put on shoes and job demands Goal Time Frame: 4-6 Weeks Goal Progress: Progressing Goal 4:: Patient to demonstrate 50% improvement with less pain and improved function . Goal Time Frame: 4-6 Weeks Goal Progress: Progressing Goal 5:: Patient to improve back oswestry score by 5 points to improve QOL and function Goal Time Frame: 4-6 Weeks Goal Progress: Goal Met Goal 6:: Normalize gait pattern Goal Time Frame: 4-6 Weeks Goal Progress: Progressing Anticipated Interventions Anticipated Interventions Patient/Client Instruction: Educate patient on: Condition and Plan of Care For the Purpose of:: To decrease pain, To increase ROM, To improve muscle performance and motor function, To improve ability to perform ADL's, To increase tolerance to activity/condition/position, To improve ability of physical actions for home/community/work/leisure, To improve health of tissue, To decrease soft tissue restriction, To increase flexibility/ROM, To improve balance and To improve tolerance to ADL's Therapeutic Exercise to Include: Strength training, Body mechanics, Postural training, Flexibilty training, Dynamic Lumbar Stabilization and Viry Exercises For the Purpose of:: To decrease pain, To increase ROM, To improve muscle performance and motor function, To increase tolerance to activity/condition/position, To improve ability of physical actions for home/community/work/leisure, To improve health of tissue, To decrease soft tissue restriction, To increase flexibility/ROM, To reduce risk of recurrence, To prevent re-injury and To improve tolerance to ADL's Manual Therapy Techniques to Include: Mobilization For the Purpose of:: To decrease pain, To increase ROM, To improve health of tissue, To decrease soft tissue restriction and To increase flexibility/ROM TENS: Yes IF ES: Yes Cryotherapy (ice pack, ice massage): Yes Thermo therapy (hot pack): Yes Ultrasound (thermal/non thermal): Yes For the Purpose of:: To decrease pain, To decrease swelling/inflammation, To improve nutrient delivery to tissue, To increase oxygenation perfusion, To improve health of tissue and To decrease soft tissue restriction Re-Evaluation Ending Re-evaluation ending: Please do not hesitate to contact me at [phone] by phone or if you have questions or concerns regarding this new plan of care! Sincerely, Felicitas Kenny, PT, Cert MDT
--- NOTE | 2023-08-29 18:56 | HP.PTREVAL_ITS ---
Re-Evaluation Intro: Dr. Bret Aragon MD, It has been my pleasure to treat ELIE AGARWAL over the last 31 visits for RADICULOPATHY ,LUMBAR REGION. Please see the progress note below for an update on the physical therapy plan of care! Subjective Subjective: PATIENT REPORTS HE CAN NOT DO ANY MORE AT HIS JOB NOW THAN HE COULD 2 MONTHS AGO BECAUSE OF HIS PAIN AND STIFFNESS. STILL ON LIFTING LIMIT OF 25#'S FROM DR. FINE. FOLLOW UP WITH DR. FINE PENDING 09/21/23. PATIENT REPORTS HE HAS AN INJECTION PLANNED WITH DR. LOPEZ Tuesday09/01/23. LAST INJECTION WAS APPROX 06/23/23 WITH 2 WEEKS OF COMPLETE PAIN RELIEF THEN IT SLOWLY CAME BACK TO PRIOR LEVEL. HE DENIES ANY INCREASED SX'S SINCE LAST RE-CHECK. HE REPORTS HE HAS NOT LOOKED INTO POOL OPTIONS FOR INDEP EX DISCUSSED WITH THE POOL THERAPIST LAST VISIT DUE TO FINANCIAL ISSUES. Objective Objective/Function: OVER-ALL PATIENT IS NOT PROGRESSING. PHYSICIAN RE- ASSESSMENT RECOMMENDED. UPON EXAM TODAY: PATIENT AMBULATES INDEP'LY INTO PT WITH A MILD LIMP ON THE R LE AND FAIR CADANCE. NO AD'S OR LOB. PATIENT IS ABLE TO INDEP'LY TRANSFER FROM SIT TO STAND WITHOUT UE ASSIST. STEPS - PATIENT IS ABLE TO ASCEND AND DESCEND STEPS reciprocally WITHOUT HR X 1 FLIGHT WITH MILD LIMP WHEN LEADING DOWN WITH LLE. C/O INCREASED PAIN WITH STAIR TESTING. Sitting/Standing Posture: FAIR. ONLY ABLE TO PARTIALLY CORRECT. DOES NOT MAINTAIN. PATIENT REPORTS ATTEMPS AT POSTURE CORRECTION HAVE NE ON PAIN. Sensory deficit: MARCY LE LIGHT TOUCH SENSATION GROSSLY INTACT AND SYMMETRICAL INCLUDING TESTING OF FEET AND TOES. ROM deficit: MARCY HS AND CALF TIGHTNESS. Motor deficit: MARCY LE'S 5/5 WITH MMT'ING. Reflexes: MARCY QUADS AND ACHILLES 2+ Dural Signs: NEGATIVE MARCY LE'S. Lumbar mvmt loss: flex - MOD - INCREASES R HIP PAIN - NW ext - MOD - INCREASES CENTRAL LBP - W R SG - MOD - INCREASES R HIP PAIN - NW L SG - MOD - NE Core strength: FAIR OTHER: PATIENT IS ABLE TO WALK ON HIS TOES AND WALK ON HIS HEELS WITHOUT UE ASSIST. OSWESTRY SCORE: LAST RE-CHECK 18. THIS VISIT 19. Plan Plan Plan: HOLD PT DUE TO LACK OF PROGRESS. Balance/Gait/Functional tests Balance/Special Test Scores Oswestry Low Back Score: 19 Goals Goals Goal 1:: Patient to be I with HEP for lumbar Goal Time Frame: 4-6 Weeks Goal Progress: Not Progressing Goal 2:: Patient to improve posture/body mechanics 80% of the time Goal Time Frame: 4-6 Weeks Goal Progress: Not Progressing Goal 3:: Patient to improve lumbar ROM for function of recovery to put on shoes and job demands Goal Time Frame: 4-6 Weeks Goal Progress: Not Progressing Goal 4:: Patient to demonstrate 50% improvement with less pain and improved function . Goal Time Frame: 4-6 Weeks Goal Progress: Not Progressing Goal 5:: Patient to improve back oswestry score by 5 points to improve QOL and function Goal Time Frame: 4-6 Weeks Goal Progress: Not Progressing Goal 6:: Normalize gait pattern Goal Time Frame: 4-6 Weeks Goal Progress: Not Progressing Anticipated Interventions Anticipated Interventions Patient/Client Instruction: Educate patient on: Condition and Plan of Care For the Purpose of:: To decrease pain, To increase ROM, To improve muscle performance and motor function, To improve ability to perform ADL's, To increase tolerance to activity/condition/position, To improve ability of physical actions for home/community/work/leisure, To improve health of tissue, To decrease soft tissue restriction, To increase flexibility/ROM, To improve balance and To improve tolerance to ADL's Therapeutic Exercise to Include: Strength training, Body mechanics, Postural training, Flexibilty training, Dynamic Lumbar Stabilization and Viry Exercises For the Purpose of:: To decrease pain, To increase ROM, To improve muscle performance and motor function, To increase tolerance to activity/condition/posi tion, To improve ability of physical actions for home/community/work/leisure, To improve health of tissue, To decrease soft tissue restriction, To increase flexibility/ROM, To reduce risk of recurrence, To prevent re-injury and To improve tolerance to ADL's Manual Therapy Techniques to Include: Mobilization For the Purpose of:: To decrease pain, To increase ROM, To improve health of tissue, To decrease soft tissue restriction and To increase flexibility/ROM TENS: Yes IF ES: Yes Cryotherapy (ice pack, ice massage): Yes Thermo therapy (hot pack): Yes Ultrasound (thermal/non thermal): Yes For the Purpose of:: To decrease pain, To decrease swelling/inflammation, To improve nutrient delivery to tissue, To increase oxygenation perfusion, To improve health of tissue and To decrease soft tissue restriction Re-Evaluation Ending Re-evaluation ending: Please do not hesitate to contact me at [phone] by phone or if you have questions or concerns regarding this new plan of care! Sincerely, Felicitas Kenny, PT, Cert MDT
== END 2023-08-29 19:00 | disposition home or self-care (01) ==
LOC: PT 17:00
PROVIDERS: PCP Family Medicine; Referring Provider Orthopaedic Surgery Orthopaedic Surgery of the Spine; Visit Provider Orthopaedic Surgery Orthopaedic Surgery of the Spine
DX: M54.16 Radiculopathy, lumbar region (principal)
CPT/HCPCS: 97014; 97110; 97113; 97162; 97164; 97530; G0283

== ENCOUNTER → 2023-09-22 | Outpatient (CLI) | payer OTHER, SELFPAY ==
[2023-09-22 15:18] LABS: Erythrocyte Sedimentation Rate 8 mm/hr (0-20)
[2023-09-22 15:20] LABS: Absolute Lymphocyte Count 2.24 X10^3/uL (0.83-4.51); Absolute Neutrophil Count 3.9 X10^3/uL (2.0-7.7); Basophil# 0.07 X10^3/uL; Eosinophil# 0.36 X10^3/uL; Hematocrit 42.6 % (40-54); Hemoglobin 14.4 g/dL (13.0-16.5); Lymphocyte # 2.24 X10^3/ul (0.83-4.51); Lymphocyte % 31.2 % (19-41); Mean Corp Hgb Conc 33.8 g/dL (32-36); Mean Corpuscular Hgb 31.1 pg (27.0-32.0); Mean Platelet Vol. 10.6 fl (6.2-12.0); Monocyte# 0.62 X10^3/uL; Monocyte% 8.6 % (0-10); NRBC Flagged by Analyzer 0 % (0-5); Neutrophil # 3.87 X10^3/uL (2.7-7.7); Neutrophil % 53.8 % (47-70); Platelet Count 258 K/mm3 (150-450); RBC Distribution Width CV 12.9 % (11.6-14.6); RBC Distribution Width SD 42.8 fl (35.1-43.9); Red Blood Count 4.63 M/mm3 (4.6-6.2); White Blood Count 7.2 K/mm3 (4.4-11.0)
[2023-09-22 16:16] LABS: ALB/GLOB Ratio 1.1 RATIO (0.9-2.4); AST(SGOT) 17 U/L (15-37); Alanine Aminotransfer ALT/SGPT 39 U/L (16-61); Albumin, Serum 3.9 g/dL (3.2-5.0); Alkaline Phosphatase 71 U/L (45-117); Anion Gap 8 (5-15); BUN 12 mg/dL (7-18); BUN/Creat Ratio 13.5 RATIO (10-20); CRP < 2.90 mg/L (0.0-3.0); Calcium,Total 9.5 mg/dL (8.5-10.1); Chloride 107 mmol/L (98-107); Creatinine, Serum 0.89 mg/dL (0.70-1.30); EST Glomerular Filtration Rate 98 mL/min (>60); Est Glom Filt Rate - Afr Amer 119 mL/min (>60); Globulin 3.6 g/dL (2.2-4.2); Glucose 97 mg/dL (74-106); Potassium 3.8 mmol/L (3.5-5.1); Protein, Total 7.5 g/dL (6.4-8.2); Rheumatoid Factor < 10.0 IU/mL (<15); Sodium Level 139 mmol/L (136-145)
[2023-09-26 13:07] LABS: ANTINUCLEAR ANTIBODIES DIRECT Negative (Negative)
== END | disposition home or self-care (01) ==
LOC: MFPLAB 12:26
PROVIDERS: PCP Family Medicine; Visit Provider Family Medicine
DX: M25.60 Stiffness of unspecified joint, not elsewhere classified (principal)
CPT/HCPCS: 36415; 80053; 84443; 85025; 85652; 86038; 86140; 86431

== ENCOUNTER 2024-02-15 09:20 | Emergency (ER) | payer OTHER, SELFPAY ==
[2024-02-15 09:21] VITALS: BP 149/87; PULSE 82; RESP 16; TEMP 36.6; O2SAT 98; BMI 35.5
--- NOTE | 2024-02-15 09:43 | EKG12_ITS ---
Test Reason : Blood Pressure : */* mmHG Vent. 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
--- NOTE | 2024-02-15 09:49 | EDS_ITS ---
HPI History of Present Illness Chief Complaint: General Illness Informant: patient and spouse/S.O. Narrative Narrative: Presents with spouse for evaluation sudden onset fatigue and near syncopal symptoms 1 hour prior to arrival while at work. 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 He states lightheaded symptoms. No dizzy spinning. No chest pains or shortness of breath. No recent vomiting or diarrhea. No urinary symptoms. Denies any black or bloody stools. Denies cough symptoms. Reported felt similar symptoms when he had significant back pain last year in February causing him the pass out. Since then has had lower lumbar surgery this past August that helped his pain then. Since summer she has had thoracic discomfort that he seen his surgeon at [facility] told it is musculoskeletal. He is on gabapentin. Prior similar symptoms: Yes PFSH [facility] Medical History Acute pharyngitis, unspecified Sleep apnea Heartburn Anxiety Home Medications ?Medication ?Instructions ?Recorded ?Last Taken ?Type albuterol sulfate 90 mcg/actuation 2 puff inhalation Q6H PRN 01/08/21 Unknown Rx aerosol inhaler (Proventil HFA) shortness of breath or wheezing #8.5 grams dexamethasone 6 mg tablet 6 mg PO DAILY #10 tabs 01/08/21 Unknown Rx (Decadron) epinephrine 0.3 mg/0.3 mL 0.3 mg (0.3 mL) IM Q10M PRN PRN 11/03/22 Unknown Rx injection, auto-injector anaphylaxis #2 ea famotidine 20 mg tablet (Pepcid) 20 mg PO DAILY #7 tabs 11/03/22 Unknown Rx prednisone 20 mg tablet 40 mg (2 x 20 mg) PO DAILY #8 tabs 11/03/22 Unknown Rx Allergy/AdvReac Type Severity Reaction Status Date / Time amoxicillin AdvReac Upset Verified 02/15/24 09:21 Stomach Family History Father Diabetes Parkinsons Mother Hypertension Surgical History [place] teeth extracted Social History Smoking Status: Never smoker ROS ROS ED Constitutional Constitutional ED: Reports other Details: Fatigue ; Denies chills, fever(s) or sweats Eyes Eyes: Denies change in vision ENT ENT ED: Denies dysphagia or sore throat Cardiovascular Cardiovascular: Reports other Details: Lightheaded symptoms ; Denies chest pain, leg edema, palpitations or racing heartbeat Respiratory/Chest Respiratory/Chest: Denies cough, dyspnea or dyspnea on exertion Gastrointestinal Gastrointestinal: Denies abdominal pain, diarrhea, nausea or vomiting Genitourinary Genitourinary ED: Denies dysuria, hematuria or urinary frequency Musculoskeletal Musculoskeletal: Denies back pain, extremity pain or neck pain Integumentary Denies rash or wounds Neurologic Neurologic: Denies headache(s), paresthesias or weakness EXAM Physical Exam Const Vital Signs: 02/15/24 09:21 02/15/24 09:26 02/15/24 10:53 Temperature 98 F 98 F Temperature Source Oral Pulse Rate 82 63 Respiratory Rate 16 18 Respiratory Effort Normal Non-Labored Respiratory Pattern Normal Blood Pressure 149/87 H 137/95 H Blood Pressure Mean 107 109 Pulse Ox 98 99 Oxygen Delivery Method Room Air Positive well nourished and well developed General Appearance ED: well developed and NAD HEENT Reports moist mucous membranes normocephalic and atraumatic Eyes EOMs intact bilaterally and conjunctivae normal General Eye ED: Yes normal appearance of both eyes; Negative for pale conjunctiva Neck no lymphadenopathy and supple General: Negative for tenderness Chest Wall Chest: Negative for tenderness Resp normal respiratory effort and normal air movement Effort and Inspection: symmetric chest movement; Negative for respiratory distress Cardio regular rate, regular rhythm and no murmurs Peripheral Pulses: pulses 2+ throughout GI normal to inspection, nondistended, normoactive bowel sounds and non-tender Palpation: Negative for guarding or rebound tenderness present Back/Spine no CVA tenderness and no thoracic nor lumbar tenderness Back/Spine Narrative: No midline tenderness, there is cupping manuel on right lateral lower thoracic, no erythema. Extremity normal to inspection General Extremety ED: Negative for edema or tenderness General Extremity: Negative for edema Neuro oriented x3 and no sensory deficits noted Sensorium / Orientation: awake and alert Skin no rashes or lesions noted and no wounds MDM MDM MDM Narrative Medical decision making narrative: Interventions / MDM: Differential diagnosis: Near syncope, fatigued Diagnosis considered but do not suspect: Anemia, electrolyte abnormalities however labs are normal. My EKG interpretation: Sinus rate of 70, no ST or T wave changes QTc 393. Imaging independently reviewed and interpreted by myself: N/A External documents reviewed: N/A Test considered but not ordered:N/A ED course: Patient vital stable with no focal neurologic deficits. Reports lightheaded symptoms with fatigue. Will check EKG labs. No clinical cough or urine symptoms for concerns for infectious causes. 1045: EKG labs all stable. Has he ambulated in the emergency department. I discussed patient could be early onset of viral syndrome as his symptoms only started an hour ago. He will monitor for other symptoms he will continue oral fluids. Outpatient follow-up. All questions were answered. Re-evaluation: stable Disposition discussed with patient/family/significant other: Patient and significant other Case discussed with consulting clinician: N/A This note was generated with [employer] dictation software. It may contain incorrect words, spelling, and punctuation that were not noted in checking the note before signing. Lab Data Attestation: I reviewed the patient's lab results. Labs: Laboratory Results - last 24 hr 02/15/24 09:34 WBC 6.5 RBC 4.53 L Hgb 14.1 Hct 41.3 MCV 91.2 MCH 31.1 MCHC 34.1 RDW Std Deviation 43.7 RDW Coeff of Adonis 13.2 Plt Count 235 MPV 10.2 Immature Gran % (Auto) 0.300 Neut % (Auto) 51.7 Lymph % (Auto) 32.0 [place] % (Auto) 11.0 H Eos % (Auto) 4.4 Baso % (Auto) 0.6 Absolute Neuts (auto) 3.4 Absolute Lymphs (auto) 2.09 Nucleated RBC % 0 Sodium 143 Potassium 3.7 Chloride 112 H Carbon Dioxide 28.0 Anion Gap 3 L BUN 18 Creatinine 0.91 Estim Creat Clear Calc 144.38 Est GFR (MDRD) Af Amer 116 Est GFR (MDRD) Non-Af 96 BUN/Creatinine Ratio 19.8 Glucose 102 Calcium 9.5 TSH 1.630 Discharge Plan Triage Chief Complaint: General Illness ED Provider: Amado Cisse Dx/Rx/DC Orders Clinical Impression: Near syncope, Fatigue Instructions: ED Near-Fainting, Uncertain Cause Prescriptions: No Action dexamethasone [Decadron] 6 mg tablet 6 mg PO DAILY Qty: 10 0RF albuterol sulfate [Proventil HFA] 90 mcg/actuation HFA aerosol inhaler 2 puff inhalation Q6H PRN (Reason: shortness of breath or wheezing) Qty: 8.5 0RF prednisone 20 mg tablet 40 mg PO DAILY Qty: 8 0RF famotidine [Pepcid] 20 mg tablet 20 mg PO DAILY Qty: 7 0RF epinephrine 0.3 mg/0.3 mL auto-injector 0.3 mg IM Q10M PRN PRN (Reason: anaphylaxis) Qty: 2 0RF Stand Alone Forms: ED Work / School Excuse Primary Care Provider: Stanislav Stubbs Referrals: Stanislav Stubbs MD [Primary Care Provider] - 3-5 Days if not improving Activity Restrictions/Additional Instructions: EKG labs including thyroid screening normal. Possibly early onset of viral symptoms. Monitor for other symptoms that may arise. Continue oral fluids for hydration. Monitor symptoms, follow-up with your doctor. Print Language: Maltese Disposition Disposition: Home, Self Care Discharge Date/Time: 02/15/24 10:53
[2024-02-15 09:52] LABS: Absolute Lymphocyte Count 2.09 X10^3/uL (0.83-4.51); Absolute Neutrophil Count 3.4 X10^3/uL (2.0-7.7); Basophil# 0.04 X10^3/uL; Basophil% 0.6 % (0-1); Eosinophil# 0.29 X10^3/uL; Eosinophils% 4.4 % (0-5); Hematocrit 41.3 % (40-54); Hemoglobin 14.1 g/dL (13.0-16.5); Lymphocyte # 2.09 X10^3/ul (0.83-4.51); Mean Corp Hgb Conc 34.1 g/dL (32-36); Mean Corpuscular Hgb 31.1 pg (27.0-32.0); Mean Corpuscular Volume 91.2 fL (80-94); Mean Platelet Vol. 10.2 fl (6.2-12.0); Monocyte# 0.72 X10^3/uL; NRBC Flagged by Analyzer 0 % (0-5); Neutrophil # 3.38 X10^3/uL (2.7-7.7); Neutrophil % 51.7 % (47-70); Platelet Count 235 K/mm3 (150-450); RBC Distribution Width CV 13.2 % (11.6-14.6); RBC Distribution Width SD 43.7 fl (35.1-43.9); Red Blood Count 4.53 M/mm3 (4.6-6.2); White Blood Count 6.5 K/mm3 (4.4-11.0)
[2024-02-15 10:25] LABS: Anion Gap 3 (5-15); BUN 18 mg/dL (7-18); BUN/Creat Ratio 19.8 RATIO (10-20); Calcium,Total 9.5 mg/dL (8.5-10.1); Chloride 112 mmol/L (98-107); Creatinine, Serum 0.91 mg/dL (0.70-1.30); EST Glomerular Filtration Rate 96 mL/min (>60); Est Glom Filt Rate - Afr Amer 116 mL/min (>60); Estimated Creatinine Clearance 144.38 ml/min; Glucose 102 mg/dL (74-106); Potassium 3.7 mmol/L (3.5-5.1); Sodium Level 143 mmol/L (136-145)
[2024-02-15 10:53] VITALS: BP 137/95; PULSE 63; RESP 18; TEMP 36.6; O2SAT 99
== END 2024-02-15 10:53 | disposition home or self-care (01) ==
PROVIDERS: Emergency Provider Emergency Medicine; PCP Family Medicine; Visit Provider Emergency Medicine
DX: R55 Syncope and collapse (principal); R53.83 Other fatigue; R12 Heartburn; Z79.899 Other long term (current) drug therapy
CPT/HCPCS: 80048; 84443; 85025; 93005; 99284

== ENCOUNTER 2024-06-15 07:52 | Day surgery (SDC) | payer OTHER, SELFPAY ==
--- NOTE | 2024-06-12 13:35 | PAT.ANE_ITS ---
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 When Was Last Pacemaker Check QUESTION #4 FULL TEXT: You/Your Family Experience fever (hyperthermia) with Anesthesia Last Oral Intake Last Oral intake: Last Oral Intake NPO since Meds taken in AM with sips of water? 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 Female No 06/12/24 12:48 HX of Motion Sickness Yes 06/12/24 12:48 HX of N/V After Surgery Yes 06/12/24 12:48 Non-Smoker Yes 06/12/24 12:48 Duration of Surgery greater No 06/12/24 12:48 than 60 minutes Number of Risk Factors 3 06/12/24 12:48 PONV Score Moderate Risk 06/12/24 12:48 Height & Weight Height & Weight: Anesthesia: Height & Weight Height 6 ft 2 in 04/20/24 12:06 Respiratory Assessment Respiratory Assessment - child day care teacher: Respiratory Tract Infection Hx - child day care teacher Hx Respiratory Tract Infection No 06/12/24 12:48 STOP Sleep Apnea STOP Sleep Apnea - child day care teacher: STOP Sleep Apnea - child day care teacher Hx Hypertension No 06/12/24 12:48 Hx Sleep Apnea Yes 06/12/24 12:48 CPAP No 06/12/24 12:48 BIPAP Yes 06/12/24 12:48 Do you snore loudly (louder than talking or can be heard Do you often feel tired/ fatigued/ sleepy during daytime? Has anyone observed you stop breathing during sleep? STOP Results Positive 06/12/24 12:48 QUESTION #5 FULL TEXT : Do you snore loudly (louder than talking or can be heard through closed doors)? 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 Specify any problems Hx of Preganancy in last 3 N/A 06/12/24 12:48 Months Nurse Filling Out Transfusion [facility] 06/12/24 12:48 & Questions: Date: 06/12/24 06/12/24 12:48 Time: 12:51 06/12/24 12:48 Patient unable to answer at this time (ie. confused, unrespo /Reproduction History /Reproductive History - child day care teacher: /Reproductive Hx- child day care teacher Hx Now No 06/12/24 12:48 Gestational Age (in weeks): EDC: Hx Hx Para Hx Section SAB No 06/12/24 12:48 [facility] Medical History (Updated 06/12/24 @ 12:56 by Kimberly Lambert) History of ulceration Migraine headache Non-smoker Acute pharyngitis, unspecified Sleep apnea Heartburn Anxiety Home Medications ?Medication ?Instructions ?Recorded ?Last Taken ?Type epinephrine 0.3 mg/0.3 mL 0.3 mg (0.3 mL) IM Q10M PRN PRN 11/03/22 Unknown Rx injection, auto-injector anaphylaxis #2 ea cetirizine 10 mg tablet (Zyrtec) 10 mg PO QDAY PRN all ergy symptoms 04/20/24 Unknown History cholecalciferol (vitamin D3) 10 10 mcg PO QDAY 5 Unknown History mcg (400 unit) capsule cyclobenzaprine 10 mg tablet 10 mg PO TID PRN muscle s pasm 04/20/24 Unknown History duloxetine 30 mg capsule,delayed 30 mg PO QDAY 5 Unknown History release (Cymbalta) fluticasone propionate 50 2 spray intranasal QDAY 03/29 07/20 Unknown History mcg/actuation nasal spray,suspension (Flonase Allergy Relief) glucosamine-chondroitin 500 mg-400 1 cap PO QDAY 04/20 Unknown History mg capsule meloxicam 15 mg tablet 15 mg PO QDAY 04/20/24 Unkno wn History multivitamin 1 tab PO QDAY 04/20/24 Unkno wn History pseudoephedrine HCl 120 mg 120 mg PO QDAY 04/20/24 Unk nown History tablet,extended release (Sudafed 12 Hour) psyllium husk 0.4 gram capsule 0.4 g PO QDAY 04/20/24 Unknown History (Daily Fiber) trazodone 50 mg tablet 50 mg PO QHS 04/20/24 Unknow n History turmeric 400 mg capsule 400 mg PO QDAY 04/20/24 Unkn own History zinc gluconate 30 mg tablet 30 mg PO QDAY 04/20/24 Unk nown History collagen,hydrolysate 500 mg-biotin 1 cap PO DAILY 05/26 11/19 Unknown History 800 mcg-ascorbic acid 50 mg capsule (Collagen 1500 Plus C) Allergy/AdvReac Type Severity Reaction Status Date / Time amoxicillin AdvReac Upset Verified 06/12/24 12:44 Stomach Family History Father Diabetes Parkinsons Mother Hypertension Surgical History (Updated 06/12/24 @ 12:56 by Kimberly Lambert) History of back surgery (~2023) History of lithotripsy Hx of colonoscopy [place] teeth extracted Social History Smoking Status: Never smoker Audit: Pertinent Findings Pertinent Findings EKG Perinent findings: NSR Recommendation Anesthesia Recommendation Anesthesia recommendation: OPTIMIZED for anesthesia
[2024-06-15] VITALS (8 sets, daily range): BP systolic 97–150; BP diastolic 56–107; PULSE 69–80; RESP 16–18; TEMP 36.1–37.2; O2SAT 95–98; BMI 34.8
--- NOTE | 2024-06-15 08:45 | PCM.PRE.AN2 ---
ASA Classification* ASA Classification ASA Classification: 2 Assessment & Plan Anesthesia* Anesthesia Assessment Anesthesia Assessment: Discussed sedation and/or anesthesia options, risks, benefits, and alternatives with patient/parents/legal guardian/POA. Questions invited. The patient/parents/legal guardian/POA seems to understand and agrees to proceed with anesthesia plan. Reviewed the physical assessment, medical history, allergy history and patient home medications list prior to surgery/procedure/anesthetic and documented any changes. Performed airway and anesthesia risk assessments. Anesthesia Type Anesthesia Type: MAC History Source History Obtained from:: Patient, Chart and Significant Other (spouse) Anesthesia Focused Assessment* Temperature: 96.9 F Pulse Rate: 80 Blood Pressure: 130/87 Respiratory Rate: 18 Pulse Ox: 97 Oxygen Delivery Method: Room Air Airway Assessment Mouth opens: 2 cm Mallampati Score: III Teeth Condition: Intact Neck Range of motion (ROM): Full ROM Focused Labs Anesthesia Preop lab: CBC WBC 6.5 K/mm3 (4.4-11.0) 02/15/24 09:34 02/15/24 RBC 4.53 M/mm3 (4.6-6.2) L 02/15/24 09:34 02/15/24 Hgb 14.1 g/dL (13.0-16.5) 02/15/24 09:34 02/15/24 Hct 41.3 % (40-54) 02/15/24 09:34 02/15/24 Plt Count 235 K/mm3 (150-450) 02/15/24 09:34 02/15/24 CHEMISTRY Potassium 3.7 mmol/L (3.5-5.1) 02/15/24 09:34 02/15/24 Sodium 143 mmol/L (136-145) 02/15/24 09:34 02/15/24 BUN 18 mg/dL (7-18) 02/15/24 09:34 02/15/24 Creatinine 0.91 mg/dL (0.70-1.30) 02/15/24 09:34 02/15/24 Glucose 102 mg/dL (74-106) 02/15/24 09:34 02/15/24 TSH 1.630 uIU/mL (0.358-3.740) 02/15/24 09:34 02/15/24 COAG Pre-Assessment Diagnosis/Proposed Procedure Planned Operative Procedure(s): cscope Anesthesia History 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 When Was Last Pacemaker Check QUESTION #4 FULL TEXT: You/Your Family Experience fever (hyperthermia) with Anesthesia Last Oral Intake Last Oral intake: Last Oral Intake NPO since 05:00 06/15/24 08:19 Meds taken in AM with sips of water? Meds patient instructed to take am of surgery PONV PONV - chief operator: PONV - chief operator Female No 06/12/24 12:48 HX of Motion Sickness Yes 06/12/24 12:48 HX of N/V After Surgery Yes 06/12/24 12:48 Non-Smoker Yes 06/12/24 12:48 Duration of Surgery greater No 06/12/24 12:48 than 60 minutes Number of Risk Factors 3 06/12/24 12:48 PONV Score Moderate Risk 06/12/24 12:48 Height & Weight Height & Weight: Anesthesia: Height & Weight Height 6 ft 2 in 06/15/24 08:19 Weight: 123 kg 06/15/24 08:19 Body Mass Index (BMI) 34.8 06/15/24 08:19 Respiratory Assessment Respiratory Assessment - chief operator: Respiratory Tract Infection Hx - chief operator Hx Respiratory Tract Infection No 06/12/24 12:48 STOP Sleep Apnea STOP Sleep Apnea - chief operator: STOP Sleep Apnea - chief operator Hx Hypertension No 06/12/24 12:48 Hx Sleep Apnea Yes 06/12/24 12:48 CPAP No 06/12/24 12:48 BIPAP Yes 06/12/24 12:48 Do you snore loudly (louder than talking or can be heard Do you often feel tired/ fatigued/ sleepy during daytime? Has anyone observed you stop breathing during sleep? STOP Results Positive 06/12/24 12:48 QUESTION #5 FULL TEXT : Do you snore loudly (louder than talking or can be heard through closed doors)? 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 Specify any problems Hx of Preganancy in last 3 N/A 06/12/24 12:48 Months Nurse Filling Out Transfusion [facility] 06/12/24 12:48 & Questions: Date: 06/12/24 06/12/24 12:48 Time: 12:51 06/12/24 12:48 Patient unable to answer at this time (ie. confused, unrespo /Reproduction History /Reproductive History - chief operator: /Reproductive Hx- chief operator Hx Now No 06/12/24 12:48 Gestational Age (in weeks): EDC: Hx Hx Para Hx Section SAB No 06/12/24 12:48 [facility] Medical History (Updated 06/12/24 @ 12:56 by Kimberly Lambert) History of ulceration Migraine headache Non-smoker Acute pharyngitis, unspecified Sleep apnea Heartburn Anxiety Home Medications ?Medication ?Instructions ?Recorded ?Last Taken ?Type epinephrine 0.3 mg/0.3 mL 0.3 mg (0.3 mL) IM Q10M PRN PRN 11/03/22 Unknown Rx injection, auto-injector anaphylaxis #2 ea cetirizine 10 mg tablet (Zyrtec) 10 mg PO QDAY PRN allergy symptoms 04/20/24 06/14/24 History cholecalciferol (vitamin D3) 10 10 mcg PO QDAY 04/20/24 06/14/24 History mcg (400 unit) capsule cyclobenzaprine 10 mg tablet 10 mg PO TID PRN muscle spasm 04/20/24 06/14/24 History duloxetine 30 mg capsule,delayed 30 mg PO QDAY 04/20/24 06/14/24 History release (Cymbalta) fluticasone propionate 50 2 spray intranasal QDAY 04/20/24 Unknown History mcg/actuation nasal spray,suspension (Flonase Allergy Relief) glucosamine-chondroitin 500 mg-400 1 cap PO QDAY 04/20/24 06/12/24 History mg capsule meloxicam 15 mg tablet 15 mg PO QDAY 04/20/24 06/14/24 History multivitamin 1 tab PO QDAY 04/20/24 06/14/24 History pseudoephedrine HCl 120 mg 120 mg PO QDAY 04/20/24 06/13/24 History tablet,extended release (Sudafed 12 Hour) psyllium husk 0.4 gram capsule 0.4 g PO QDAY 04/20/24 06/11/24 History (Daily Fiber) trazodone 50 mg tablet 50 mg PO QHS 04/20/24 06/14/24 History turmeric 400 mg capsule 400 mg PO QDAY 04/20/24 06/08/24 History zinc gluconate 30 mg tablet 30 mg PO QDAY 04/20/24 Unknown History collagen,hydrolysate 500 mg-biotin 1 cap PO DAILY 06/12/24 06/14/24 History 800 mcg-ascorbic acid 50 mg capsule (Collagen 1500 Plus C) Allergy/AdvReac Type Severity Reaction Status Date / Time amoxicillin AdvReac Upset Verified 06/15/24 08:16 Stomach Family History Father Diabetes Parkinsons Mother Hypertension Surgical History (Updated 06/12/24 @ 12:56 by Kimberly Lambert) History of back surgery (~2023) History of lithotripsy Hx of colonoscopy [place] teeth extracted Social History Smoking Status: Never smoker Review of Systems (Anesthesia) ROS Narrative System reviewed and no additional complaints, except as documented.
--- NOTE | 2024-06-15 09:12 | H&P.OPEN ---
HPI - General HPI Narrative ELIE AGARWAL, is a 43 M who presents for screening colonoscopy. His last colonoscopy was 10 years ago. He denies abdominal pain or blood in the stool. He has no family history of colon cancer. [facility] Medical History (Updated 06/12/24 @ 12:56 by Kimberly Lambert) History of ulceration Migraine headache Non-smoker Acute pharyngitis, unspecified Sleep apnea Heartburn Anxiety Home Medications ?Medication ?Instructions ?Recorded ?Last Taken ?Type epinephrine 0.3 mg/0.3 mL 0.3 mg (0.3 mL) IM Q10M PRN PRN 11/03/22 Unknown Rx injection, auto-injector anaphylaxis #2 ea cetirizine 10 mg tablet (Zyrtec) 10 mg PO QDAY PRN allergy symptoms 04/20/24 06/14/24 History cholecalciferol (vitamin D3) 10 10 mcg PO QDAY 04/20/24 06/14/24 History mcg (400 unit) capsule cyclobenzaprine 10 mg tablet 10 mg PO TID PRN muscle spasm 04/20/24 06/14/24 History duloxetine 30 mg capsule,delayed 30 mg PO QDAY 04/20/24 06/14/24 History release (Cymbalta) fluticasone propionate 50 2 spray intranasal QDAY 04/20/24 Unknown History mcg/actuation nasal spray,suspension (Flonase Allergy Relief) glucosamine-chondroitin 500 mg-400 1 cap PO QDAY 04/20/24 06/12/24 History mg capsule meloxicam 15 mg tablet 15 mg PO QDAY 04/20/24 06/14/24 History multivitamin 1 tab PO QDAY 04/20/24 06/14/24 History pseudoephedrine HCl 120 mg 120 mg PO QDAY 04/20/24 06/13/24 History tablet,extended release (Sudafed 12 Hour) psyllium husk 0.4 gram capsule 0.4 g PO QDAY 04/20/24 06/11/24 History (Daily Fiber) trazodone 50 mg tablet 50 mg PO QHS 04/20/24 06/14/24 History turmeric 400 mg capsule 400 mg PO QDAY 04/20/24 06/08/24 History zinc gluconate 30 mg tablet 30 mg PO QDAY 04/20/24 Unknown History collagen,hydrolysate 500 mg-biotin 1 cap PO DAILY 06/12/24 06/14/24 History 800 mcg-ascorbic acid 50 mg capsule (Collagen 1500 Plus C) Allergy/AdvReac Type Severity Reaction Status Date / Time amoxicillin AdvReac Upset Verified 06/15/24 08:16 Stomach Family History Father Diabetes Parkinsons Mother Hypertension Surgical History (Updated 06/12/24 @ 12:56 by Kimberly Lambert) History of back surgery (~2023) History of lithotripsy Hx of colonoscopy [place] teeth extracted Social History Smoking Status: Never smoker Past Medical/Surgical History Planned Operation Planned Operative Procedure(s): cscope Previous Hospitalizations/Surgeries HX Hospitalizations: No Any Problems With Anesthesia: Yes (ponv) You/Your Family Experience Fever (Hyperthermia) With Anes: No Cholinesterase deficiency: No Cardiovascular Hx Chest Pain within Last 2 months: No Hx Heart Attack: No Hx Hypertension: No Hx Cardiac Surgery/Stents/Etc.: No Respiratory Hx Chronic Obstructive Pulmonary Disease (COPD): No Hx Sleep Apnea: Yes CPAP: No BIPAP: Yes Hx Respiratory Tract Infection/Cold (presently): No Result (for STOP score): Positive Hx Smoking: No Smoking Status: Never smoker Neurological Hx Seizures: No Hx Multiple Sclerosis: No Hx Parkinson's Disease: No Does patient have nerve stimulator: No Reproduction : No Genitourinary Hx Renal Disease: No Hx Dialysis: No Musculoskeletal Hx Arthritis: Yes Hx Rheumatoid Arthritis: No Endocrine Hx Diabetes: No Thyroid Disease: No Psycho/Social Hx Depression: No Hx Dementia: No Miscellaneous Hx Cancer: No Recent Exposure to Contagious Disease: No Allergies amoxicillin Adverse Reaction (Verified 06/15/24 08:16) Upset Stomach Discharge Is Pt Admitted From a Residential, or a Longterm: No After D/C, Where Do you Plan to Go: Return Home Vital Signs Vital Signs Vital Signs: 06/15/24 08:19 06/15/24 08:19 06/15/24 09:03 Temperature 96.9 F L 96.9 F L Temperature Source Temporal Pulse Rate 80 80 Respiratory Rate 18 18 Respiratory Pattern Normal Blood Pressure 130/87 H 130/87 H Blood Pressure Mean 101 Blood Pressure Source Monitor Blood Pressure Position Semi-Fowlers Blood Pressure Location Left Arm Pulse Ox 97 97 Oxygen Delivery Method Room Air Room Air Weight Weight: 271 lb 2.697 oz Body Mass Index (BMI) 34.8 Physical Exam Const alert and oriented x3 HEENT normocephalic Eyes PERRL Resp normal respiratory effort and normal air movement Cardio regular rate and regular rhythm GI soft to palpation, non-tender and non-distended Extremity normal to inspection Assessment & Plan Assessment/Plan (1) Encounter for screening for malignant neoplasm of colon: PLAN: I explained endoscopy in detail to the patient. I explained the risks including but not limited to stroke or heart attack with anesthesia, perforation of the GI tract, bleeding, infection. I explained that any of these could necessitate further emergency surgery. The patient understands and all questions were answered sufficiently. The patient wishes to proceed with procedure. Steve Ng MD Pager: [facility] [address] [place] [address] [address] [place] [address] Office: Surgery Risks - Colonoscopy Risks Include but are not Limited To: Risks include but are not limited to: Bleeding, perforation requiring further surgery, inability to complete colonoscopy requiring barium enema.
--- NOTE | 2024-06-15 09:34 | OP.CCLET_ITS ---
06/15/2024 Dilshad Stubbs [address] [place] [address] Re : Colonoscopy procedure for Jaden Dee Dear Dr. Stubbs This procedure was performed on Saturday, June 15, 2024. My impressions and recommendations are as follows: Impressions : - The entire examined colon is normal on direct and retroflexion views. - No specimens collected. Recommendations : - Discharge patient to home. - Resume previous diet. - Continue present medications. - Repeat colonoscopy in 10 years for screening purposes. My findings are described in the full procedure note, which is enclosed. If I can be of further assistance, please feel free to contact me at Doctor phone number(s): , Work: . Sincerely, Steve Ng MD 06/15/2024 9:34:18 AM This report has been signed electronically.
--- NOTE | 2024-06-15 09:34 | OP.COLON_ITS ---
Patient Name: Jaden Dee Procedure Date: 06/15/2024 9:10 AM Date of : 1980 Age: 43 Procedure: Colonoscopy Indications: Screening for colorectal malignant neoplasm Providers: Steve Ng MD Medicines: Propofol per Anesthesia Patient Profile: This is a 43 year old male. Refer to note in patient chart for documentation of history and physical. Last Colonoscopy: more than 10 years ago. Complications: No immediate complications. Procedure: Pre-Anesthesia Assessment: - Prior to the procedure, a History and Physical was performed, and patient medications and allergies were reviewed. The patient's tolerance of previous anesthesia was also reviewed. The risks and benefits of the procedure and the sedation options and risks were discussed with the patient. All questions were answered, and informed consent was obtained. Prior Anticoagulants: The patient has taken no anticoagulant or antiplatelet agents. After reviewing the risks and benefits, the patient was deemed in satisfactory condition to undergo the procedure. After I obtained informed consent, the scope was passed under direct vision. Throughout the procedure, the patient's blood pressure, pulse, and oxygen saturations were monitored continuously. The Colonoscope was introduced through the anus and advanced to the cecum, identified by appendiceal orifice and ileocecal valve. The colonoscopy was performed without difficulty. The patient tolerated the procedure well. The quality of the bowel preparation was good. The ileocecal valve, appendiceal orifice, and rectum were photographed. Scope In: 9:22:26 AM Scope Withdrawal Time 0 hours 6 minutes 1 second Scope Out: 9:32:42 AM Total Procedure Duration Time 0 hours 10 minutes 16 seconds Findings: The entire examined colon appeared normal on direct and retroflexion views. Impression: - The entire examined colon is normal on direct and retroflexion views. - No specimens collected. Recommendation: - Discharge patient to home. - Resume previous diet. - Continue present medications. - Repeat colonoscopy in 10 years for screening purposes. Procedure Code(s): --- Professional --- 86085, Colonoscopy, flexible; diagnostic, including collection of specimen(s) by brushing or washing, when performed (separate procedure) Diagnosis Code(s): --- Professional --- Z12.11, Encounter for screening for malignant neoplasm of colon CPT copyright 2021 [employer]. All rights reserved. The codes documented in this report are preliminary and upon medical insurance collector review may be revised to meet current compliance requirements. Steve Ng MD 06/15/2024 9:34:18 AM This report has been signed electronically. Number of Addenda: 0 Note Initiated On: 06/15/2024 9:10 AM
--- NOTE | 2024-06-15 09:44 | PCM.POST.ANE ---
Anesthesia: Postop Eval I Current Vital Signs Temperature: 97.0 F Pulse Rate: 80 Blood Pressure: 130/87 Respiratory Rate: 18 Pulse Ox: 98 Oxygen Delivery Method: Room Air Assessment Airway patent: Yes Spontaneous unlabored respirations: Yes Mental status: Awake and Calm nausea: No Vomiting: No Anesthesia Complication: No Fluid Hydration Crystalloid volume administer (ml): 20 Total IV fluid infused: 20 Progress Note Anesthesia document: Postop Eval 1 completed: Yes
--- NOTE | 2024-06-15 11:43 | POSTOPAN2_ITS ---
Anesthesia Postop Eval I Sum Postop Eval Completion status Anesthesia document: Postop Eval 1 completed: Yes Anesthesia Postop Eval I Summary Anesthesia Postop Eval I Summary: Anesthesia Postop Eval I: Assessment Summary Airway patent Yes 06/15/24 09:44 CHICKEN TENDER.[email or web address] Spontaneous unlabored Yes 06/15/24 09:44 CHICKEN TENDER.NALDO respirations Mental status Awake,Calm 06/15/24 09:44 CHICKEN TENDER.NALDO nausea No 06/15/24 09:44 CHICKEN TENDER.NALDO Vomiting No 06/15/24 09:44 CHICKEN TENDER.NALDO Anesthesia Postop Eval I: Fluid Summary Crystalloid volume administer 20 06/15/24 09:44 CHICKEN TENDER.NALDO (ml) Colloids volume administered ( ml) Blood Product volume administered (ml) Total IV fluid infused 20 06/15/24 09:44 CHICKEN TENDERMALCOLM Anesthesia Postop Eval I: Summary Notes Anesthesia Complication No 06/15/24 09:44 GEORGE Anesthesia Complication Comment: Post-operative progress note Anesthesia: Postop Eval II Evaluation Mental status: Awake Pain Level: 0 nausea: No Vomiting: No Complications Anesthesia Complication: No
--- NOTE | 2024-06-15 11:43 | PCM.POSTANE2 ---
Anesthesia Postop Eval I Sum Postop Eval Completion status Anesthesia document: Postop Eval 1 completed: Yes Anesthesia Postop Eval I Summary Anesthesia Postop Eval I Summary: Anesthesia Postop Eval I: Assessment Summary Airway patent Yes 06/15/24 09:44 MELTER SUPERVISOR OXYGEN FURNACE.EMILEOBJovi Spontaneous unlabored Yes 06/15/24 09:44 MELTER SUPERVISOR OXYGEN FURNACE.NALDO respirations Mental status Awake,Calm 06/15/24 09:44 MELTER SUPERVISOR OXYGEN FURNACE.NALDO nausea No 06/15/24 09:44 MELTER SUPERVISOR OXYGEN FURNACE.NALDO Vomiting No 06/15/24 09:44 MELTER SUPERVISOR OXYGEN FURNACE.NALDO Anesthesia Postop Eval I: Fluid Summary Crystalloid volume administer 20 06/15/24 09:44 MELTER SUPERVISOR OXYGEN FURNACE.NALDO (ml) Colloids volume administered ( ml) Blood Product volume administered (ml) Total IV fluid infused 20 06/15/24 09:44 MELTER SUPERVISOR OXYGEN FURNACEMALCOLM Anesthesia Postop Eval I: Summary Notes Anesthesia Complication No 06/15/24 09:44 GEORGE Anesthesia Complication Comment: Post-operative progress note Anesthesia: Postop Eval II Evaluation Mental status: Awake Pain Level: 0 nausea: No Vomiting: No Complications Anesthesia Complication: No
== END 2024-06-15 10:16 | disposition home or self-care (01) ==
LOC: EN 07:54 → AC 07:57
PROVIDERS: PCP Family Medicine; Referring Provider Family Medicine; Visit Provider Surgery
PROC: 0DJD8ZZ Inspection of Lower Intestinal Tract, Via Natural or Artificial Opening Endoscopic (ICD-10-PCS; CPT 45378; principal; 2024-06-15 08:55)
DX: Z12.11 Encounter for screening for malignant neoplasm of colon (principal); F41.9 Anxiety disorder, unspecified; Z79.899 Other long term (current) drug therapy
CPT/HCPCS: 45378; A4216

== ENCOUNTER → 2025-03-01 | Outpatient (CLI) | payer OTHER, SELFPAY ==
--- NOTE | 2025-03-01 09:41 | RAD_ITS ---
EXAM: XR Left Ribs and AP Chest, 3 or More Views CLINICAL INDICATION: PAIN TECHNIQUE: Frontal and oblique views of the left ribs and frontal view of the chest. COMPARISON: No relevant prior studies available. FINDINGS: LUNGS AND PLEURAL SPACES: Unremarkable. No consolidation. No pneumothorax. HEART: Unremarkable. No cardiomegaly. MEDIASTINUM: Unremarkable. Normal mediastinal contour. BONES/JOINTS: Unremarkable. No displaced rib fractures. RAD/Ribs Uni Min 3V w/PA Chest IMPRESSION: No displaced rib fractures. Reading Location: [id number]
== END | disposition home or self-care (01) ==
LOC: MTRAD 09:38
PROVIDERS: PCP Family Medicine
DX: R52 Pain, unspecified (principal)
CPT/HCPCS: 71101

== ENCOUNTER → 2025-03-27 | Outpatient (CLI) | payer OTHER, SELFPAY | END | disposition home or self-care (01) | LOC: PSN 09:23 | PROVIDERS: PCP Family Medicine; Referring Provider Family Medicine; Visit Provider Family Medicine | DX: J98.01 Acute bronchospasm (principal) | CPT/HCPCS: 94060; 94726; 94729 ==